=== PATIENT | male | born 1950 | race Two or more races ===

== ENCOUNTER 2021-10-10 11:54 | Inpatient (IN) | payer MEDICARE, MEDICAID ==
[~2021-10-10] VITALS: Ht 170.2 cm; Wt 81.0 kg
[~2021-10-10 11:54] MED LIST: ALLO300T2; SIMV-13
[2021-10-10 13:26] LABS: Basophils # (auto) 0.1 10 ^3/uL (0-0.2); Basophils % (auto) 1.1 % (0.0-2.0); Eosinophils # (auto) 0.2 10 ^3/uL (0-0.8); Eosinophils % (auto) 2.4 % (0.0-7.0); Hematocrit 44.9 % (41.0-53.0); Hemoglobin 15.1 g/dL (13.5-17.5); Lymphocytes # (auto) 2.5 10 ^3/uL (0.4-5.4); Lymphocytes % (auto) 31.9 % (10.0-50.0); Mean Corpuscular Hemoglobin 30.1 pg (28.0-32.0); Mean Corpuscular Hgb Conc. 33.6 g/dL (32.0-36.0); Mean Corpuscular Volume 89.8 fL (80.0-100.0); Monocytes # (auto) 0.5 10 ^3/uL (0-1.3); Monocytes % (auto) 7.1 % (0.0-12.0); Neutrophils # (auto) 4.4 10 ^3/uL (1.6-8.6); Neutrophils % (auto) 57.5 % (37.0-80.0); Nucleated Red Blood Cells % 0.1 %; Red Blood Cells 5.01 10^6/uL (4.5-5.90); White Blood Cell 7.7 10^3/uL (4.4-10.8)
[2021-10-10 13:40] LABS: INR 1.1 (0.9-1.15)
[2021-10-10] MEDS ORDERED: NITROGLYCERIN 0.4 MG SL TAB SL PRN (13:45)
[2021-10-10] MEDS ORDERED: MORPHINE SULFATE INJECTION 2 MG/ML SYRG IV PRN ×2 (13:45→15:45)
[2021-10-10 13:46] LABS: Albumin 3.8 g/dL (3.4-5.0); Calcium 9.2 mg/dL (8.5-10.1); Magnesium 2.5 mg/dL (1.6-2.6); Potassium 4.1 mmol/L (3.5-5.1)
[2021-10-10 13:49] LABS: Bilirubin, Total 0.5 mg/dL (0.2-1.0); Total Protein 7.7 g/dL (6.4-8.2)
[2021-10-10] MEDS ORDERED: hydrALAZINE HCL 20 MG/ML VL IV PRN (14:00)
[2021-10-10 14:27] LABS: Urine Amorphous Crystal MOD /hpf (None Seen); Urine Bacteria MANY /hpf (None Seen); Urine Blood Negative /uL (Negative); Urine Budding Yeast LOADED /hpf (None Seen); Urine Mucus FEW (None Seen); Urine Specific Gravity 1.023 (1.001-1.035); Urine WBC 6 /hpf (0 - 3)
[2021-10-10] MEDS ORDERED: ONDANSETRON HCL 4 MG/2 ML VIAL IV PRN (15:45)
[2021-10-10] MEDS ORDERED: HYDROcodone-ACET 5/325MG TAB PO PRN (15:45)
[2021-10-10] MEDS ORDERED: LORazepam 0.5 MG TAB PO PRN (15:45)
[2021-10-10] MEDS ORDERED: ACETAMINOPHEN 325 MG TAB PO PRN (15:45)
[2021-10-10] MEDS ORDERED: DOCUSATE SOD 100 MG CAP PO PRN (15:45)
[2021-10-10] MEDS: SODIUM CHLORIDE 0.9% 1,000 ML IV SCH (16:00)
[2021-10-10 16:45] VITALS: BP 126/67
[2021-10-10 17:40] VITALS: BP 126/67
[2021-10-10] MEDS: TAMSULOSIN HYDROCHLORIDE 0.4 MG CAP PO SCH (18:53)
[2021-10-10] MEDS: ATORVASTATIN 20 MG TAB PO SCH (21:33)
[2021-10-10 22:00] VITALS: BP 139/75
[2021-10-10] MEDS ORDERED: TELM80TA PO (23:22)
[2021-10-10] MEDS ORDERED: ATOR-47 PO (23:22)
[2021-10-10] MEDS ORDERED: CITI500C PO (23:22)
[2021-10-11 05:00] VITALS: BP 119/57
[2021-10-11 06:32] LABS: Basophils # (auto) 0 10 ^3/uL (0-0.2); Basophils % (auto) 0.7 % (0.0-2.0); Eosinophils # (auto) 0.2 10 ^3/uL (0-0.8); Eosinophils % (auto) 2.7 % (0.0-7.0); Hematocrit 41.5 % (41.0-53.0); Hemoglobin 14.1 g/dL (13.5-17.5); Lymphocytes # (auto) 2.5 10 ^3/uL (0.4-5.4); Lymphocytes % (auto) 35.2 % (10.0-50.0); Mean Corpuscular Hemoglobin 30.3 pg (28.0-32.0); Mean Corpuscular Hgb Conc. 34.1 g/dL (32.0-36.0); Mean Corpuscular Volume 88.9 fL (80.0-100.0); Monocytes # (auto) 0.4 10 ^3/uL (0-1.3); Monocytes % (auto) 6.2 % (0.0-12.0); Neutrophils # (auto) 3.9 10 ^3/uL (1.6-8.6); Neutrophils % (auto) 55.2 % (37.0-80.0); Nucleated Red Blood Cells % 0.1 %; Red Blood Cells 4.67 10^6/uL (4.5-5.90); Red Cell Distribution Width 14.8 % (11.8-14.3); White Blood Cell 7.2 10^3/uL (4.4-10.8)
[2021-10-11 06:42] LABS: INR 1.11 (0.9-1.15)
[2021-10-11 06:51] LABS: Potassium 4.1 mmol/L (3.5-5.1)
[2021-10-11 07:01] LABS: Albumin 3.4 g/dL (3.4-5.0); BUN/Creatinine Ratio 11.7; Bilirubin, Total 0.5 mg/dL (0.2-1.0); Calcium 8.9 mg/dL (8.5-10.1); Magnesium 2.1 mg/dL (1.6-2.6); Total Protein 7.1 g/dL (6.4-8.2); Uric Acid 4.1 mg/dL (3.5-7.2)
[2021-10-11 07:07] LABS: Urine Bacteria NONE SEEN /hpf (None Seen); Urine Blood Negative /uL (Negative); Urine Specific Gravity 1.019 (1.001-1.035); Urine WBC <1 /hpf (0 - 3)
[2021-10-11 09:00] VITALS: BP 138/60
[2021-10-11 09:10] LABS: Alcohol, Urine < 3.0 mg/dL (0-10); Amphetamine Screen, Urine NEGATIVE (NEGATIVE); Barbiturate Scree,Urine NEGATIVE (NEGATIVE); Benzodiazephine Screen, Urine NEGATIVE (NEGATIVE); Cannabinoid Screen, Urine NEGATIVE (NEGATIVE); Cocaine Screen, Urine NEGATIVE (NEGATIVE); Opiate Scree,Urine NEGATIVE (NEGATIVE); Phencyclidine Screen, Urine NEGATIVE (NEGATIVE)
[2021-10-11] MEDS: ALLOPURINOL 100 MG TAB PO SCH (09:56)
[2021-10-11] MEDS: NIFEdipine ER 30 MG TAB PO SCH (09:58)
[2021-10-11] MEDS: CLOPIDOGREL BISULFATE 75 MG TAB PO SCH (09:58)
[2021-10-11] MEDS: ENOXAPARIN SOD 40 MG/0.4 ML SYRINGE SC SCH (09:59)
[2021-10-11] MEDS: SODIUM CHLORIDE 0.9% 1,000 ML IV SCH (09:59)
[2021-10-11] MEDS: BENAZEPRIL HCL 10 MG TAB PO SCH (09:59)
[2021-10-11] MEDS ORDERED: FAMOTIDINE (10MG/ML) 2ML VL IV SCH (10:00)
[2021-10-11 13:00] VITALS: BP 130/79
[2021-10-11 16:49] VITALS: BP 133/71
[2021-10-11] MEDS: TAMSULOSIN HYDROCHLORIDE 0.4 MG CAP PO SCH (18:00)
[2021-10-11] MEDS ORDERED: IOHEXOL 350 MG/ML 100ML IJ ONE (18:11)
[2021-10-11] MEDS: ATORVASTATIN 20 MG TAB PO SCH (21:33)
[2021-10-11 22:36] VITALS: BP 124/75
[2021-10-12 05:09] VITALS: BP 139/73
[2021-10-12 09:00] VITALS: BP 124/61
[2021-10-12] MEDS: ASPirin 81 mg TAB PO SCH (09:24)
[2021-10-12] MEDS: NIFEdipine ER 30 MG TAB PO SCH (09:26)
[2021-10-12] MEDS: ENOXAPARIN SOD 40 MG/0.4 ML SYRINGE SC SCH (09:26)
[2021-10-12] MEDS: BENAZEPRIL HCL 10 MG TAB PO SCH (09:26)
[2021-10-12] MEDS: CLOPIDOGREL BISULFATE 75 MG TAB PO SCH (09:26)
[2021-10-12] MEDS: ALLOPURINOL 100 MG TAB PO SCH (09:26)
[2021-10-12 13:00] VITALS: BP 128/94
[2021-10-12 17:00] VITALS: BP 119/67
[2021-10-12] MEDS: TAMSULOSIN HYDROCHLORIDE 0.4 MG CAP PO SCH (17:37)
[2021-10-12 22:00] VITALS: BP 114/67
[2021-10-12] MEDS ORDERED: ATORVASTATIN 20 MG TAB PO SCH (22:00)
[2021-10-13 05:00] VITALS: BP 101/65
[2021-10-13 08:00] VITALS: BP 126/76
[2021-10-13] MEDS: ALLOPURINOL 100 MG TAB PO SCH (09:51)
[2021-10-13] MEDS: ASPirin 81 mg TAB PO SCH (09:51)
[2021-10-13] MEDS: CLOPIDOGREL BISULFATE 75 MG TAB PO SCH (09:51)
[2021-10-13] MEDS: NIFEdipine ER 30 MG TAB PO SCH (09:52)
[2021-10-13] MEDS: BENAZEPRIL HCL 10 MG TAB PO SCH (09:52)
[2021-10-13] MEDS: ENOXAPARIN SOD 40 MG/0.4 ML SYRINGE SC SCH (09:54)
[2021-10-13] MEDS ORDERED: ASPI1CHW15 PO (10:04)
[2021-10-13] MEDS ORDERED: CLOP75TA70 PO (10:04)
[2021-10-13] MEDS ORDERED: ATOR-47 PO (10:04)
[2021-10-13 12:00] VITALS: BP 119/68
[2021-10-13 13:55] VITALS: BP 126/76
== END 2021-10-13 14:30 | disposition home health service (06) | DRG 65 ==
LOC: ER 11:54 → TELE 13:33 → TELE-CENTR 17:30
PROVIDERS: ADMIT Hospitalist; ATTEND Internal Medicine
DX: I63.81 Other cerebral infarction due to occlusion or stenosis of small artery (principal); G81.91 Hemiplegia, unspecified affecting right dominant side; E88.81 Metabolic syndrome and other insulin resistance; E78.5 Hyperlipidemia, unspecified; E66.01 Morbid (severe) obesity due to excess calories; K76.0 Fatty (change of) liver, not elsewhere classified; M1A.9XX0 Chronic gout, unspecified, without tophus (tophi); Z20.822 Contact with and (suspected) exposure to COVID-19; G47.10 Hypersomnia, unspecified; F17.200 Nicotine dependence, unspecified, uncomplicated; I10 Essential (primary) hypertension; Z79.02 Long term (current) use of antithrombotics/antiplatelets; Z79.82 Long term (current) use of aspirin; Z79.899 Other long term (current) drug therapy; Z68.28 Body mass index [BMI] 28.0-28.9, adult
CPT/HCPCS: 36415; 70450; 70496; 70498; 71045; 80053; 80061; 80307; 81001; 82306; 82728; 83036; 83615; 83690; 83735; 83880; 84443; 84484; 84550; 85025; 85379; 85610; 85652; 85730; 87040; 87086; 93005; 93306; 93886; 97163; G0378; J3490

== ENCOUNTER → 2021-10-26 | Outpatient (CLI) | payer MEDICARE, MEDICAID ==
[~2021-10-26] MED LIST changes: -ALLO300T2; +ASPI1CHW15 PO; +ATOR-47 PO; +CLOP75TA70 PO; -SIMV-13; +TELM80TA PO
== END | disposition home or self-care (01) ==
LOC: LAB 10:43
PROVIDERS: ATTEND Internal Medicine
DX: Z12.31 Encounter for screening mammogram for malignant neoplasm of breast (principal)
CPT/HCPCS: 82274

== ENCOUNTER → 2022-03-13 | Outpatient (CLI) | payer MEDICARE, MEDICAID ==
[2022-03-13 09:26] LABS: Urine Blood Negative /uL (Negative); Urine Specific Gravity 1.019 (1.001-1.035)
[2022-03-13 09:27] LABS: Urine Bacteria NONE SEEN /hpf (None Seen); Urine Blood Negative /uL (Negative); Urine Mucus FEW (None Seen); Urine Specific Gravity 1.019 (1.001-1.035); Urine WBC <1 /hpf (0 - 3)
[2022-03-13 09:30] LABS: Basophils # (auto) 0.1 10 ^3/uL (0-0.2); Basophils % (auto) 0.7 % (0.0-2.0); Eosinophils # (auto) 0.3 10 ^3/uL (0-0.8); Eosinophils % (auto) 3.4 % (0.0-7.0); Hematocrit 44.9 % (41.0-53.0); Hemoglobin 14.9 g/dL (13.5-17.5); Lymphocytes # (auto) 3.2 10 ^3/uL (0.4-5.4); Lymphocytes % (auto) 44.1 % (10.0-50.0); Mean Corpuscular Hemoglobin 29.7 pg (28.0-32.0); Mean Corpuscular Hgb Conc. 33.3 g/dL (32.0-36.0); Mean Corpuscular Volume 89.4 fL (80.0-100.0); Monocytes # (auto) 0.5 10 ^3/uL (0-1.3); Monocytes % (auto) 6.6 % (0.0-12.0); Neutrophils # (auto) 3.3 10 ^3/uL (1.6-8.6); Neutrophils % (auto) 45.2 % (37.0-80.0); Red Blood Cells 5.02 10^6/uL (4.5-5.90); Red Cell Distribution Width 15.2 % (11.8-14.3); White Blood Cell 7.3 10^3/uL (4.4-10.8)
[2022-03-13 10:03] LABS: Albumin 3.7 g/dL (3.4-5.0); Calcium 8.9 mg/dL (8.5-10.1)
[2022-03-13 10:10] LABS: Bilirubin, Total 0.9 mg/dL (0.2-1.0); Total Protein 7.3 g/dL (6.4-8.2)
[2022-03-13 10:54] LABS: Prostate Specific Antigen 1.58 ng/mL (0.0-4.0)
== END | disposition home or self-care (01) ==
LOC: LAB 08:50
PROVIDERS: ATTEND Internal Medicine
DX: R73.09 Other abnormal glucose (principal); E78.5 Hyperlipidemia, unspecified; R33.9 Retention of urine, unspecified; D50.9 Iron deficiency anemia, unspecified
CPT/HCPCS: 36415; 80053; 80061; 81001; 81003; 82607; 83540; 84153; 85025

== ENCOUNTER 2022-03-21 14:28 | Inpatient (IN) | payer MEDICARE, MEDICAID ==
[~2022-03-21] VITALS: Ht 167.6 cm; Wt 83.0 kg
[2022-03-21] MEDS ORDERED: LORazepam 0.5 MG TAB PO PRN (17:00)
[2022-03-21] MEDS ORDERED: MORPHINE SULFATE INJ 2 MG/ml SYRG IV PRN ×2 (17:00)
[2022-03-21] MEDS ORDERED: ACETAMINOPHEN 325 MG TAB PO PRN (17:00)
[2022-03-21] MEDS ORDERED: HYDROcodone-ACET 5/325MG TAB PO PRN (17:00)
[2022-03-21] MEDS ORDERED: NITROGLYCERIN 0.4 MG SL TAB SL PRN (17:00)
[2022-03-21] MEDS ORDERED: ONDANSETRON HCL 4 MG/2 ML VIAL IV PRN (17:00)
[2022-03-21] MEDS ORDERED: ASPirin 81 mg TAB PO ONE (17:00)
[2022-03-21] MEDS ORDERED: DOCUSATE SOD 100 MG CAP PO PRN (17:00)
[2022-03-21 17:52] LABS: Basophils # (auto) 0.1 10 ^3/uL (0-0.2); Basophils % (auto) 0.8 % (0.0-2.0); Eosinophils # (auto) 0.2 10 ^3/uL (0-0.8); Eosinophils % (auto) 3.2 % (0.0-7.0); Hematocrit 40.9 % (41.0-53.0); Hemoglobin 13.4 g/dL (13.5-17.5); Lymphocytes % (auto) 41.7 % (10.0-50.0); Mean Corpuscular Hemoglobin 29.4 pg (28.0-32.0); Mean Corpuscular Hgb Conc. 32.7 g/dL (32.0-36.0); Mean Corpuscular Volume 90.1 fL (80.0-100.0); Monocytes # (auto) 0.5 10 ^3/uL (0-1.3); Monocytes % (auto) 6.5 % (0.0-12.0); Neutrophils # (auto) 3.4 10 ^3/uL (1.6-8.6); Neutrophils % (auto) 47.8 % (37.0-80.0); Red Blood Cells 4.54 10^6/uL (4.5-5.90); Red Cell Distribution Width 15.3 % (11.8-14.3); White Blood Cell 7.2 10^3/uL (4.4-10.8)
[2022-03-21 17:57] LABS: INR 1.05 (0.9-1.15)
[2022-03-21 18:01] LABS: Calcium 8.7 mg/dL (8.5-10.1); Magnesium 2.4 mg/dL (1.6-2.6); Potassium 4.3 mmol/L (3.5-5.1)
[2022-03-21 18:03] LABS: BUN/Creatinine Ratio 12.4
[2022-03-21] MEDS: SODIUM CHLOR 0.9% PF (SALINE LOCK) 10ML VIAL/SYR IV SCH (21:07)
[2022-03-21] MEDS: ATORVASTATIN 20 MG TAB PO SCH (21:08)
[2022-03-21 21:30] VITALS: BP 128/71
[2022-03-22 05:00] VITALS: BP 143/77
[2022-03-22] MEDS: SODIUM CHLOR 0.9% PF (SALINE LOCK) 10ML VIAL/SYR IV SCH ×3 (05:09→21:28)
[2022-03-22 07:03] LABS: Urine Bacteria NONE SEEN /hpf (None Seen); Urine Blood Negative /uL (Negative); Urine Mucus FEW (None Seen); Urine Specific Gravity 1.013 (1.001-1.035); Urine WBC <1 /hpf (0 - 3)
[2022-03-22] MEDS ORDERED: ADENOSINE 71 MG in GIVE UN-DILUTED 0 ML IV ONE (07:30)
[2022-03-22 07:31] LABS: Alcohol, Urine < 3.0 mg/dL (0-10); Amphetamine Screen, Urine NEGATIVE (NEGATIVE); Barbiturate Scree,Urine NEGATIVE (NEGATIVE); Benzodiazephine Screen, Urine NEGATIVE (NEGATIVE); Cannabinoid Screen, Urine NEGATIVE (NEGATIVE); Cocaine Screen, Urine NEGATIVE (NEGATIVE); Opiate Scree,Urine NEGATIVE (NEGATIVE); Phencyclidine Screen, Urine NEGATIVE (NEGATIVE)
[2022-03-22 08:30] VITALS: BP 143/94
[2022-03-22] MEDS ORDERED: LOSARTAN POTASSIUM 50 MG TAB PO ONE (11:30)
[2022-03-22] MEDS ORDERED: hydrALAZINE HCL 20 MG/ML VL IV PRN (11:30)
[2022-03-22] MEDS: ASPirin 81 mg TAB PO SCH (11:50)
[2022-03-22 13:00] VITALS: BP 167/88
[2022-03-22 17:08] VITALS: BP 153/87
[2022-03-22] MEDS: ATORVASTATIN 20 MG TAB PO SCH (21:28)
[2022-03-22 22:00] VITALS: BP 134/87
[2022-03-23 05:00] VITALS: BP 120/60
[2022-03-23] MEDS: SODIUM CHLOR 0.9% PF (SALINE LOCK) 10ML VIAL/SYR IV SCH ×3 (06:21→21:13)
[2022-03-23 09:00] VITALS: BP 111/60
[2022-03-23] MEDS: LOSARTAN POTASSIUM 50 MG TAB PO SCH (09:19)
[2022-03-23] MEDS: ASPirin 81 mg TAB PO SCH (09:19)
[2022-03-23 12:32] VITALS: BP 126/60
[2022-03-23 17:14] VITALS: BP 135/74
[2022-03-23] MEDS: ATORVASTATIN 20 MG TAB PO SCH (21:13)
[2022-03-23 22:00] VITALS: BP 137/69
[2022-03-24 05:00] VITALS: BP 128/57
[2022-03-24] MEDS: SODIUM CHLOR 0.9% PF (SALINE LOCK) 10ML VIAL/SYR IV SCH (05:46)
[2022-03-24 08:51] VITALS: BP 129/86
[2022-03-24] MEDS: LOSARTAN POTASSIUM 50 MG TAB PO SCH (09:49)
[2022-03-24] MEDS: ASPirin 81 mg TAB PO SCH (09:49)
[2022-03-24 13:00] VITALS: BP 125/73
[2022-03-24 14:48] VITALS: BP 123/77
[2022-03-24 15:02] VITALS: BP 123/77
== END 2022-03-24 16:00 | disposition home or self-care (01) | DRG 311 ==
LOC: TELE-EAST 16:50
PROVIDERS: ADMIT Internal Medicine; ATTEND Internal Medicine
DX: I24.9 Acute ischemic heart disease, unspecified (principal); E78.5 Hyperlipidemia, unspecified; E66.9 Obesity, unspecified; I10 Essential (primary) hypertension; Z20.822 Contact with and (suspected) exposure to COVID-19; M10.9 Gout, unspecified; R73.03 Prediabetes; Z87.891 Personal history of nicotine dependence; Z86.73 Personal history of transient ischemic attack (TIA), and cerebral infarction without residual deficits; Z71.3 Dietary counseling and surveillance; Z68.29 Body mass index [BMI] 29.0-29.9, adult
CPT/HCPCS: 36415; 71045; 78452; 80048; 80307; 81001; 83036; 83735; 83880; 84443; 84484; 85025; 85610; 85730; 87426; 93017; 93306; G0378; J0153

== ENCOUNTER 2022-06-12 00:13 | Inpatient (IN) | payer MEDICARE, MEDICAID ==
[~2022-06-12] VITALS: Ht 167.6 cm; Wt 84.0 kg
[2022-06-12 00:45] LABS: Basophils # (auto) 0.1 10 ^3/uL (0-0.2); Basophils % (auto) 0.6 % (0.0-2.0); Eosinophils # (auto) 0.1 10 ^3/uL (0-0.8); Eosinophils % (auto) 1.4 % (0.0-7.0); Hematocrit 43.5 % (41.0-53.0); Hemoglobin 14.6 g/dL (13.5-17.5); Lymphocytes # (auto) 3.5 10 ^3/uL (0.4-5.4); Lymphocytes % (auto) 33.4 % (10.0-50.0); Mean Corpuscular Hemoglobin 30.6 pg (28.0-32.0); Mean Corpuscular Hgb Conc. 33.5 g/dL (32.0-36.0); Mean Corpuscular Volume 91.3 fL (80.0-100.0); Monocytes # (auto) 0.6 10 ^3/uL (0-1.3); Monocytes % (auto) 5.8 % (0.0-12.0); Neutrophils # (auto) 6.2 10 ^3/uL (1.6-8.6); Neutrophils % (auto) 58.8 % (37.0-80.0); Red Blood Cells 4.76 10^6/uL (4.5-5.90); White Blood Cell 10.6 10^3/uL (4.4-10.8)
[2022-06-12] MEDS ORDERED: ONDANSETRON HCL 4 MG/2 ML VIAL IV ONE ×2 (00:45→03:00)
[2022-06-12] MEDS ORDERED: METOCLOPRAMIDE HCL 5MG/ml INJ 2ml VIAL IV ONE (00:45)
[2022-06-12 00:52] LABS: INR 1.04 (0.9-1.15); Partial Thromboplastin Time 28.9 sec (24.6-33.4)
[2022-06-12 00:55] LABS: BUN/Creatinine Ratio 11.1; Calcium 9.2 mg/dL (8.5-10.1)
[2022-06-12 00:57] LABS: Bilirubin, Total 0.6 mg/dL (0.2-1.0); Total Protein 7.5 g/dL (6.4-8.2)
[2022-06-12] MEDS ORDERED: MORPHINE SULFATE 4 MG/ML SYR/VIAL IV ONE ×2 (02:15→03:00)
[2022-06-12] MEDS ORDERED: MORPHINE SULFATE 4 MG/ML SYR/VIAL IV PRN (04:00)
[2022-06-12] MEDS ORDERED: MAALOX PLUS or MAALOX 30 ML PO ONE (04:00)
[2022-06-12] MEDS ORDERED: LORazepam 0.5 MG TAB PO PRN (04:00)
[2022-06-12] MEDS ORDERED: ACETAMINOPHEN 325 MG TAB PO PRN (04:00)
[2022-06-12] MEDS ORDERED: NITROGLYCERIN 0.4 MG SL TAB SL PRN (04:00)
[2022-06-12] MEDS: ONDANSETRON HCL 4 MG/2 ML VIAL IV PRN (06:07)
[2022-06-12 06:45] LABS: Basophils # (auto) 0.1 10 ^3/uL (0-0.2); Basophils % (auto) 0.7 % (0.0-2.0); Eosinophils # (auto) 0 10 ^3/uL (0-0.8); Eosinophils % (auto) 0.1 % (0.0-7.0); Hematocrit 41.7 % (41.0-53.0); Hemoglobin 14.1 g/dL (13.5-17.5); Lymphocytes # (auto) 1.5 10 ^3/uL (0.4-5.4); Lymphocytes % (auto) 13.7 % (10.0-50.0); Mean Corpuscular Hemoglobin 30.7 pg (28.0-32.0); Mean Corpuscular Hgb Conc. 33.8 g/dL (32.0-36.0); Mean Corpuscular Volume 90.7 fL (80.0-100.0); Monocytes # (auto) 0.5 10 ^3/uL (0-1.3); Monocytes % (auto) 4.3 % (0.0-12.0); Neutrophils % (auto) 81.2 % (37.0-80.0); Nucleated Red Blood Cells % 0.1 %; White Blood Cell 11.1 10^3/uL (4.4-10.8)
[2022-06-12 06:52] LABS: BUN/Creatinine Ratio 11.1; Calcium 9.1 mg/dL (8.5-10.1); Potassium 4.2 mmol/L (3.5-5.1)
[2022-06-12] MEDS ORDERED: IPRATROPIUM BROM 0.5 MG/2.5ML INH SOL NEB PRN ×2 (08:00→09:15)
[2022-06-12] MEDS ORDERED: ALBUTEROL SULF 2.5 MG/0.5ML(0.5%) NEB SOLN NEB PRN ×2 (08:00→09:15)
[2022-06-12] MEDS ORDERED: MAALOX PLUS or MAALOX 30 ML PO PRN (09:15)
[2022-06-12 09:48] VITALS: BP 125/56
[2022-06-12] MEDS ORDERED: LISINOPRIL 10 MG TAB PO SCH (10:00)
[2022-06-12] MEDS ORDERED: ENOXAPARIN SOD 100 MG/1 ML SYRINGE SC SCH (10:00)
[2022-06-12] MEDS ORDERED: LISINOPRIL 5 MG TAB PO SCH ×2 (10:00)
[2022-06-12] MEDS: cefTRIAXone 1GM/50ML D5W 50 ML IV SCH (10:07)
[2022-06-12] MEDS: DOCUSATE SOD 100 MG CAP PO SCH (10:14)
[2022-06-12] MEDS: ASPirin 81 mg TAB PO SCH (10:14)
[2022-06-12] MEDS: METOPROLOL TARTRATE 25 MG TAB PO SCH ×2 (10:17→21:55)
[2022-06-12] MEDS: CLOPIDOGREL BISULFATE 75 MG TAB PO SCH (10:17)
[2022-06-12] MEDS: PANTOPRAZOLE 40 MG TAB PO SCH (10:18)
[2022-06-12] MEDS: AZITHROMYCIN 250 MG TAB PO SCH (10:21)
[2022-06-12 10:31] LABS: Urine Bacteria NONE SEEN /hpf (None Seen); Urine Blood Negative /uL (Negative); Urine WBC 9 /hpf (0 - 3); Urine WBC Clumps PRESENT /hpf (None Seen)
[2022-06-12] MEDS: ATORVASTATIN 20 MG TAB PO SCH (21:56)
[2022-06-13] MEDS ORDERED: KETOROLAC TROMETH 30 MG/ML 1ML VIAL IV PRN (08:45)
[2022-06-13] MEDS ORDERED: KETOROLAC TROMETH 30 MG/ML 1ML VIAL IV ONE (08:45)
[2022-06-13] MEDS: cefTRIAXone 1GM/50ML D5W 50 ML IV SCH (09:26)
[2022-06-13] MEDS: AZITHROMYCIN 250 MG TAB PO SCH (09:59)
[2022-06-13] MEDS: ASPirin 81 mg TAB PO SCH (09:59)
[2022-06-13] MEDS: PANTOPRAZOLE 40 MG TAB PO SCH (10:00)
[2022-06-13] MEDS: DOCUSATE SOD 100 MG CAP PO SCH (10:00)
[2022-06-13] MEDS: ISOSORBIDE MONONITRATE ER 60 MG TAB PO SCH (10:00)
[2022-06-13] MEDS: METOPROLOL TARTRATE 25 MG TAB PO SCH ×2 (10:00→23:09)
[2022-06-13] MEDS: CLOPIDOGREL BISULFATE 75 MG TAB PO SCH (10:00)
[2022-06-13] MEDS ORDERED: OMNIPAQUE ORAL SOLN 500ml 12mg/ml PO ONE (19:02)
[2022-06-13] MEDS ORDERED: IOHEXOL 350 MG/ML 100ML IJ ONE (21:28)
[2022-06-13 22:00] VITALS: BP 124/76
[2022-06-13] MEDS: ATORVASTATIN 20 MG TAB PO SCH (23:07)
[2022-06-13 23:11] VITALS: BP 124/76
[2022-06-13] MEDS ORDERED: SODIUM CHLORIDE 0.9% 1,000 ML IV ONE (23:30)
[2022-06-14] MEDS: PIPERACILLIN-TAZOB 3.375GM 100 ML IV SCH ×5 (00:14→23:55)
[2022-06-14 05:00] VITALS: BP 131/78
[2022-06-14 08:47] VITALS: BP 134/66
[2022-06-14 09:02] LABS: Basophils # (auto) 0.1 10 ^3/uL (0-0.2); Basophils % (auto) 0.5 % (0.0-2.0); Eosinophils # (auto) 0.1 10 ^3/uL (0-0.8); Eosinophils % (auto) 0.5 % (0.0-7.0); Hematocrit 40.6 % (41.0-53.0); Hemoglobin 13.3 g/dL (13.5-17.5); Lymphocytes # (auto) 1.7 10 ^3/uL (0.4-5.4); Lymphocytes % (auto) 15.2 % (10.0-50.0); Mean Corpuscular Hemoglobin 29.8 pg (28.0-32.0); Mean Corpuscular Hgb Conc. 32.9 g/dL (32.0-36.0); Mean Corpuscular Volume 90.7 fL (80.0-100.0); Monocytes % (auto) 8.8 % (0.0-12.0); Neutrophils # (auto) 8.4 10 ^3/uL (1.6-8.6); Red Blood Cells 4.48 10^6/uL (4.5-5.90); Red Cell Distribution Width 15.2 % (11.8-14.3); White Blood Cell 11.2 10^3/uL (4.4-10.8)
[2022-06-14 09:20] LABS: Albumin 3.4 g/dL (3.4-5.0); Calcium 8.4 mg/dL (8.5-10.1); Magnesium 2.3 mg/dL (1.6-2.6); Potassium 4.1 mmol/L (3.5-5.1)
[2022-06-14 09:25] LABS: BUN/Creatinine Ratio 20.5; Bilirubin, Total 1.3 mg/dL (0.2-1.0); Total Protein 6.4 g/dL (6.4-8.2)
[2022-06-14] MEDS: DOCUSATE SOD 100 MG CAP PO SCH (10:00)
[2022-06-14] MEDS: AZITHROMYCIN 250 MG TAB PO SCH (10:00)
[2022-06-14] MEDS: METOPROLOL TARTRATE 25 MG TAB PO SCH ×2 (10:00→22:00)
[2022-06-14] MEDS: ISOSORBIDE MONONITRATE ER 60 MG TAB PO SCH (10:00)
[2022-06-14] MEDS: PANTOPRAZOLE 40 MG TAB PO SCH (10:00)
[2022-06-14] MEDS ORDERED: ALBUTEROL MEDNEB 2.5 mg/3ml NEB ONE (11:59)
[2022-06-14] MEDS ORDERED: MORPHINE SULFATE INJ 2 MG/ml SYRG IV PRN (12:30)
[2022-06-14] MEDS: ONDANSETRON HCL 4 MG/2 ML VIAL IV PRN ×3 (12:35→17:59)
[2022-06-14] MEDS ORDERED: LOSA-39 PO (12:48)
[2022-06-14] MEDS ORDERED: TRAZ50TA2 PO (12:49)
[2022-06-14] MEDS ORDERED: ALLO300T2 PO (12:49)
[2022-06-14] MEDS ORDERED: ISOS1TAB28 PO (12:49)
[2022-06-14 13:00] VITALS: BP 154/90
[2022-06-14] MEDS: MORPHINE SULFATE INJ 2 MG/ml SYRG IV PRN ×2 (17:00→17:59)
[2022-06-14 17:08] VITALS: BP 135/81
[2022-06-14] MEDS ORDERED: LACTULOSE 20Gm/30ML SOLN PO ONE (18:30)
[2022-06-14] MEDS: D5W/SOD CHLO 0.9% 1,000 ML IV SCH (21:00)
[2022-06-14 22:00] VITALS: BP 140/69
[2022-06-14] MEDS: ATORVASTATIN 20 MG TAB PO SCH (22:00)
[2022-06-15 05:00] VITALS: BP 138/71
[2022-06-15] MEDS: PIPERACILLIN-TAZOB 3.375GM 100 ML IV SCH ×3 (05:46→18:13)
[2022-06-15] MEDS: MORPHINE SULFATE INJ 2 MG/ml SYRG IV PRN ×2 (05:47→13:40)
[2022-06-15] MEDS: ONDANSETRON HCL 4 MG/2 ML VIAL IV PRN (05:48)
[2022-06-15 09:00] VITALS: BP 118/61
[2022-06-15] MEDS: AZITHROMYCIN 250 MG TAB PO SCH (10:52)
[2022-06-15] MEDS: DOCUSATE SOD 100 MG CAP PO SCH (10:53)
[2022-06-15] MEDS: PANTOPRAZOLE 40 MG TAB PO SCH (10:53)
[2022-06-15] MEDS: METOPROLOL TARTRATE 25 MG TAB PO SCH ×2 (10:53→21:59)
[2022-06-15] MEDS: ISOSORBIDE MONONITRATE ER 60 MG TAB PO SCH (10:54)
[2022-06-15] MEDS: D5W/SOD CHLO 0.9% 1,000 ML IV SCH (12:28)
[2022-06-15 13:00] VITALS: BP 128/71
[2022-06-15 16:45] VITALS: BP 145/71
[2022-06-15 19:00] VITALS: BP 143/66
[2022-06-15] MEDS: ATORVASTATIN 20 MG TAB PO SCH (21:59)
[2022-06-15 22:05] VITALS: BP 143/66
[2022-06-16] MEDS: PIPERACILLIN-TAZOB 3.375GM 100 ML IV SCH ×5 (00:34→23:49)
[2022-06-16 05:00] VITALS: BP 98/51
[2022-06-16 09:04] VITALS: BP 133/71
[2022-06-16] MEDS: ISOSORBIDE MONONITRATE ER 60 MG TAB PO SCH (09:45)
[2022-06-16] MEDS: PANTOPRAZOLE 40 MG TAB PO SCH (09:45)
[2022-06-16] MEDS: DOCUSATE SOD 100 MG CAP PO SCH (09:45)
[2022-06-16] MEDS: METOPROLOL TARTRATE 25 MG TAB PO SCH ×2 (09:45→21:53)
[2022-06-16] MEDS: AZITHROMYCIN 250 MG TAB PO SCH (09:45)
[2022-06-16 13:11] VITALS: BP 111/68
[2022-06-16 21:41] VITALS: BP 136/72
[2022-06-16] MEDS: ATORVASTATIN 20 MG TAB PO SCH (21:53)
[2022-06-16] MEDS: MORPHINE SULFATE INJ 2 MG/ml SYRG IV PRN (22:04)
[2022-06-17 05:00] VITALS: BP 139/74
[2022-06-17] MEDS: PIPERACILLIN-TAZOB 3.375GM 100 ML IV SCH ×3 (05:14→18:22)
[2022-06-17 09:00] VITALS: BP 139/75
[2022-06-17] MEDS: DOCUSATE SOD 100 MG CAP PO SCH (10:02)
[2022-06-17] MEDS: ISOSORBIDE MONONITRATE ER 60 MG TAB PO SCH (10:02)
[2022-06-17] MEDS: AZITHROMYCIN 250 MG TAB PO SCH (10:03)
[2022-06-17] MEDS: PANTOPRAZOLE 40 MG TAB PO SCH (10:03)
[2022-06-17] MEDS: METOPROLOL TARTRATE 25 MG TAB PO SCH ×2 (10:03→22:11)
[2022-06-17 13:00] VITALS: BP_SYST 139; BP_SYST 148; BP_DIAS 68; BP_DIAS 69
[2022-06-17 17:00] VITALS: BP 147/73
[2022-06-17] MEDS ORDERED: ALBUTEROL MEDNEB 2.5 mg/3ml NEB ONE (18:18)
[2022-06-17] MEDS: MORPHINE SULFATE INJ 2 MG/ml SYRG IV PRN (18:31)
[2022-06-17 21:52] VITALS: BP 138/70
[2022-06-17] MEDS: ATORVASTATIN 20 MG TAB PO SCH (22:10)
[2022-06-18] VITALS (8 sets, daily range): BP systolic 103–157; BP diastolic 58–81
[2022-06-18] MEDS: PIPERACILLIN-TAZOB 3.375GM 100 ML IV SCH ×5 (00:39→23:53)
[2022-06-18] MEDS: MORPHINE SULFATE INJ 2 MG/ml SYRG IV PRN ×2 (00:58→11:32)
[2022-06-18] MEDS: ISOSORBIDE MONONITRATE ER 60 MG TAB PO SCH (11:30)
[2022-06-18] MEDS: DOCUSATE SOD 100 MG CAP PO SCH (11:30)
[2022-06-18] MEDS: METOPROLOL TARTRATE 25 MG TAB PO SCH ×2 (11:31→22:19)
[2022-06-18] MEDS: AZITHROMYCIN 250 MG TAB PO SCH (11:31)
[2022-06-18] MEDS: PANTOPRAZOLE 40 MG TAB PO SCH (11:31)
[2022-06-18] MEDS: ATORVASTATIN 20 MG TAB PO SCH (22:18)
[2022-06-19 05:14] VITALS: BP 101/42
[2022-06-19] MEDS: PIPERACILLIN-TAZOB 3.375GM 100 ML IV SCH ×4 (05:46→18:36)
[2022-06-19 06:44] LABS: Urine Bacteria NONE SEEN /hpf (None Seen); Urine Blood Negative /uL (Negative); Urine Specific Gravity 1.017 (1.001-1.035); Urine WBC <1 /hpf (0 - 3)
[2022-06-19 07:16] LABS: Basophils # (auto) 0.1 10 ^3/uL (0-0.2); Basophils % (auto) 0.7 % (0.0-2.0); Eosinophils # (auto) 0.2 10 ^3/uL (0-0.8); Eosinophils % (auto) 2.8 % (0.0-7.0); Hematocrit 36.2 % (41.0-53.0); Lymphocytes # (auto) 2.3 10 ^3/uL (0.4-5.4); Lymphocytes % (auto) 31.2 % (10.0-50.0); Mean Corpuscular Hemoglobin 31.4 pg (28.0-32.0); Mean Corpuscular Hgb Conc. 35.9 g/dL (32.0-36.0); Mean Corpuscular Volume 87.6 fL (80.0-100.0); Monocytes # (auto) 0.7 10 ^3/uL (0-1.3); Monocytes % (auto) 9.6 % (0.0-12.0); Neutrophils # (auto) 4.2 10 ^3/uL (1.6-8.6); Neutrophils % (auto) 55.7 % (37.0-80.0); Red Blood Cells 4.13 10^6/uL (4.5-5.90); Red Cell Distribution Width 14.4 % (11.8-14.3); White Blood Cell 7.5 10^3/uL (4.4-10.8)
[2022-06-19 07:37] LABS: Potassium 3.7 mmol/L (3.5-5.1)
[2022-06-19 07:53] LABS: Albumin 2.8 g/dL (3.4-5.0); BUN/Creatinine Ratio 8.4; Bilirubin, Total 0.8 mg/dL (0.2-1.0); Calcium 8.8 mg/dL (8.5-10.1); Total Protein 7.2 g/dL (6.4-8.2)
[2022-06-19 07:59] LABS: INR 1.14 (0.9-1.15); Partial Thromboplastin Time 29.1 sec (24.6-33.4)
[2022-06-19 09:00] VITALS: BP 120/76
[2022-06-19] MEDS ORDERED: MIDAZOLAM HCL 2MG/2ML 2ml VIAL (1mg/ml) ONE (09:09)
[2022-06-19] MEDS ORDERED: fentaNYL CITRATE 100 MCG/2 ML VL ONE ×2 (09:09→09:29)
[2022-06-19] MEDS ORDERED: ROCURONIUM 10MG/ML 10ML VIAL IV ONE (09:14)
[2022-06-19] MEDS ORDERED: PROPOFOL 10 MG/ML 20 ML IV ONE (09:52)
[2022-06-19] MEDS ORDERED: LIDOCAINE 2% (LOCAL ANESTH.) PF 5ml SDV ONE (09:53)
[2022-06-19] MEDS ORDERED: ONDANSETRON HCL 4 MG/2 ML VIAL ONE (09:53)
[2022-06-19] MEDS ORDERED: HYDROmorphone HCL 2 MG/ML VL/or syr ONE (10:07)
[2022-06-19] MEDS: BUPIVACAINE HCL 0.25% P/F 10 ML VIAL ONE ×2 (10:30→10:45)
[2022-06-19] MEDS: LIDOCAINE W/ EPINEPHRINE 2% INJ 20ML VIAL ONE ×2 (10:30→10:45)
[2022-06-19] MEDS ORDERED: HYDROmorphone HCL 2 MG/ML VL/or syr IV PRN ×2 (10:45)
[2022-06-19] MEDS ORDERED: ONDANSETRON HCL 4 MG/2 ML VIAL IV PRN (10:45)
[2022-06-19] MEDS ORDERED: NEOSTIGMINE 1 MG/ML INJ (10mg/10ML VIAL) ONE (10:54)
[2022-06-19] MEDS ORDERED: GLYCOPYRROLATE 0.2 MG/ML 1ML VIAL ONE (10:54)
[2022-06-19] MEDS: ISOSORBIDE MONONITRATE ER 60 MG TAB PO SCH (12:45)
[2022-06-19] MEDS: DOCUSATE SOD 100 MG CAP PO SCH (12:45)
[2022-06-19] MEDS: METOPROLOL TARTRATE 25 MG TAB PO SCH ×2 (12:45→22:37)
[2022-06-19] MEDS: PANTOPRAZOLE 40 MG TAB PO SCH (12:45)
[2022-06-19 13:00] VITALS: BP 143/84
[2022-06-19] MEDS: MORPHINE SULFATE INJ 2 MG/ml SYRG IV PRN ×3 (14:22→22:38)
[2022-06-19 17:00] VITALS: BP 150/85
[2022-06-19 22:00] VITALS: BP 107/58
[2022-06-19] MEDS: ATORVASTATIN 20 MG TAB PO SCH (22:37)
[2022-06-20] MEDS: PIPERACILLIN-TAZOB 3.375GM 100 ML IV SCH ×4 (00:44→21:35)
[2022-06-20 05:00] VITALS: BP 111/67
[2022-06-20] MEDS: MORPHINE SULFATE INJ 2 MG/ml SYRG IV PRN ×2 (06:35→18:29)
[2022-06-20 07:54] LABS: Basophils # (auto) 0 10 ^3/uL (0-0.2); Basophils % (auto) 0.5 % (0.0-2.0); Eosinophils # (auto) 0.1 10 ^3/uL (0-0.8); Eosinophils % (auto) 0.6 % (0.0-7.0); Hematocrit 34.2 % (41.0-53.0); Hemoglobin 11.8 g/dL (13.5-17.5); Lymphocytes # (auto) 1.8 10 ^3/uL (0.4-5.4); Lymphocytes % (auto) 19.4 % (10.0-50.0); Mean Corpuscular Hemoglobin 30.7 pg (28.0-32.0); Mean Corpuscular Hgb Conc. 34.5 g/dL (32.0-36.0); Mean Corpuscular Volume 89.2 fL (80.0-100.0); Monocytes # (auto) 0.8 10 ^3/uL (0-1.3); Monocytes % (auto) 8.3 % (0.0-12.0); Neutrophils # (auto) 6.8 10 ^3/uL (1.6-8.6); Neutrophils % (auto) 71.2 % (37.0-80.0); Nucleated Red Blood Cells % 0.1 %; Red Blood Cells 3.84 10^6/uL (4.5-5.90); Red Cell Distribution Width 14.5 % (11.8-14.3); White Blood Cell 9.5 10^3/uL (4.4-10.8)
[2022-06-20 09:00] VITALS: BP 119/67
[2022-06-20] MEDS: DOCUSATE SOD 100 MG CAP PO SCH (09:30)
[2022-06-20] MEDS: ISOSORBIDE MONONITRATE ER 60 MG TAB PO SCH (09:30)
[2022-06-20] MEDS: METOPROLOL TARTRATE 25 MG TAB PO SCH ×2 (09:30→21:35)
[2022-06-20] MEDS: PANTOPRAZOLE 40 MG TAB PO SCH (09:30)
[2022-06-20 13:00] VITALS: BP 115/67
[2022-06-20 17:00] VITALS: BP 124/69
[2022-06-20] MEDS: HYDROcodone-ACET 5/325MG TAB PO PRN (20:23)
[2022-06-20] MEDS: ATORVASTATIN 20 MG TAB PO SCH (21:35)
[2022-06-20 22:00] VITALS: BP 123/70
[2022-06-21] MEDS: PIPERACILLIN-TAZOB 3.375GM 100 ML IV SCH ×4 (03:56→22:41)
[2022-06-21 05:00] VITALS: BP 129/67
[2022-06-21 07:32] LABS: Basophils # (auto) 0.1 10 ^3/uL (0-0.2); Basophils % (auto) 0.4 % (0.0-2.0); Eosinophils # (auto) 0.1 10 ^3/uL (0-0.8); Eosinophils % (auto) 1.1 % (0.0-7.0); Hemoglobin 11.8 g/dL (13.5-17.5); Lymphocytes # (auto) 2.1 10 ^3/uL (0.4-5.4); Lymphocytes % (auto) 18.2 % (10.0-50.0); Mean Corpuscular Hemoglobin 31.2 pg (28.0-32.0); Mean Corpuscular Hgb Conc. 34.8 g/dL (32.0-36.0); Mean Corpuscular Volume 89.6 fL (80.0-100.0); Monocytes # (auto) 0.7 10 ^3/uL (0-1.3); Monocytes % (auto) 6.2 % (0.0-12.0); Neutrophils # (auto) 8.6 10 ^3/uL (1.6-8.6); Neutrophils % (auto) 74.1 % (37.0-80.0); Red Blood Cells 3.79 10^6/uL (4.5-5.90); Red Cell Distribution Width 13.9 % (11.8-14.3); White Blood Cell 11.7 10^3/uL (4.4-10.8)
[2022-06-21 07:42] LABS: Albumin 2.5 g/dL (3.4-5.0)
[2022-06-21 07:51] LABS: BUN/Creatinine Ratio 7.5; Bilirubin, Total 0.9 mg/dL (0.2-1.0); Total Protein 6.3 g/dL (6.4-8.2)
[2022-06-21 08:50] VITALS: BP 123/74
[2022-06-21] MEDS: DOCUSATE SOD 100 MG CAP PO SCH (09:47)
[2022-06-21] MEDS: METOPROLOL TARTRATE 25 MG TAB PO SCH ×2 (09:48→22:40)
[2022-06-21] MEDS: PANTOPRAZOLE 40 MG TAB PO SCH (09:48)
[2022-06-21] MEDS: ISOSORBIDE MONONITRATE ER 60 MG TAB PO SCH (09:49)
[2022-06-21] MEDS: MORPHINE SULFATE INJ 2 MG/ml SYRG IV PRN (10:18)
[2022-06-21 13:00] VITALS: BP 130/76
[2022-06-21] MEDS ORDERED: FUROSEMIDE 20 MG/2 ML VIAL IV ONE (14:45)
[2022-06-21] MEDS: HYDROcodone-ACET 5/325MG TAB PO PRN ×2 (15:56→22:42)
[2022-06-21 17:02] VITALS: BP 147/77
[2022-06-21] MEDS ORDERED: ALBUTEROL MEDNEB 2.5 mg/3ml NEB ONE ×2 (18:19→23:45)
[2022-06-21] MEDS: ALBUTEROL SULF 2.5 MG/0.5ML(0.5%) NEB SOLN NEB SCH (19:11)
[2022-06-21] MEDS: IPRATROPIUM BROM 0.5 MG/2.5ML INH SOL NEB SCH (19:11)
[2022-06-21 22:00] VITALS: BP 153/90
[2022-06-21 22:40] VITALS: BP 153/90
[2022-06-21] MEDS: ATORVASTATIN 20 MG TAB PO SCH (22:41)
[2022-06-22] MEDS: ALBUTEROL SULF 2.5 MG/0.5ML(0.5%) NEB SOLN NEB SCH ×4 (00:29→18:26)
[2022-06-22] MEDS: IPRATROPIUM BROM 0.5 MG/2.5ML INH SOL NEB SCH ×4 (00:29→18:26)
[2022-06-22] MEDS: PIPERACILLIN-TAZOB 3.375GM 100 ML IV SCH ×3 (04:43→15:43)
[2022-06-22 05:00] VITALS: BP 137/70
[2022-06-22] MEDS ORDERED: ALBUTEROL MEDNEB 2.5 mg/3ml NEB ONE ×3 (05:58→18:05)
[2022-06-22 07:55] LABS: Basophils # (auto) 0.1 10 ^3/uL (0-0.2); Basophils % (auto) 0.5 % (0.0-2.0); Eosinophils # (auto) 0.1 10 ^3/uL (0-0.8); Eosinophils % (auto) 0.9 % (0.0-7.0); Hematocrit 35.4 % (41.0-53.0); Hemoglobin 11.5 g/dL (13.5-17.5); Lymphocytes # (auto) 2.1 10 ^3/uL (0.4-5.4); Lymphocytes % (auto) 15.8 % (10.0-50.0); Mean Corpuscular Hemoglobin 29.8 pg (28.0-32.0); Mean Corpuscular Hgb Conc. 32.5 g/dL (32.0-36.0); Mean Corpuscular Volume 91.5 fL (80.0-100.0); Monocytes % (auto) 7.4 % (0.0-12.0); Neutrophils # (auto) 10.1 10 ^3/uL (1.6-8.6); Neutrophils % (auto) 75.4 % (37.0-80.0); Red Blood Cells 3.87 10^6/uL (4.5-5.90); Red Cell Distribution Width 14.3 % (11.8-14.3); White Blood Cell 13.4 10^3/uL (4.4-10.8)
[2022-06-22 08:06] LABS: Albumin 2.4 g/dL (3.4-5.0); Calcium 7.8 mg/dL (8.5-10.1); Potassium 3.8 mmol/L (3.5-5.1)
[2022-06-22 08:09] LABS: BUN/Creatinine Ratio 6.3; Bilirubin, Total 1.7 mg/dL (0.2-1.0); Total Protein 5.9 g/dL (6.4-8.2)
[2022-06-22 09:00] VITALS: BP 158/71
[2022-06-22] MEDS: PANTOPRAZOLE 40 MG TAB PO SCH (10:11)
[2022-06-22] MEDS: DOCUSATE SOD 100 MG CAP PO SCH (10:11)
[2022-06-22] MEDS: ISOSORBIDE MONONITRATE ER 60 MG TAB PO SCH (10:12)
[2022-06-22] MEDS: METOPROLOL TARTRATE 25 MG TAB PO SCH ×2 (10:13→22:22)
[2022-06-22] MEDS: HYDROcodone-ACET 5/325MG TAB PO PRN (11:15)
[2022-06-22 13:10] VITALS: BP 141/80
[2022-06-22] MEDS ORDERED: FUROSEMIDE 20 MG/2 ML VIAL IV ONE (15:45)
[2022-06-22] MEDS ORDERED: AZITHROMYCIN 250 MG TAB PO ONE (15:45)
[2022-06-22 16:59] VITALS: BP 138/74
[2022-06-22 21:50] VITALS: BP 152/82
[2022-06-22] MEDS: ATORVASTATIN 20 MG TAB PO SCH (22:22)
[2022-06-22] MEDS: MORPHINE SULFATE INJ 2 MG/ml SYRG IV PRN (22:23)
[2022-06-23] MEDS: IPRATROPIUM BROM 0.5 MG/2.5ML INH SOL NEB SCH ×4 (02:35→19:17)
[2022-06-23] MEDS: ALBUTEROL SULF 2.5 MG/0.5ML(0.5%) NEB SOLN NEB SCH ×4 (02:35→19:17)
[2022-06-23] MEDS: PIPERACILLIN-TAZOB 3.375GM 100 ML IV SCH ×4 (03:16→22:29)
[2022-06-23 04:41] VITALS: BP 130/84
[2022-06-23] MEDS ORDERED: ALBUTEROL MEDNEB 2.5 mg/3ml NEB ONE ×3 (06:08→17:50)
[2022-06-23 08:06] LABS: Basophils # (auto) 0.1 10 ^3/uL (0-0.2); Basophils % (auto) 0.5 % (0.0-2.0); Eosinophils # (auto) 0.1 10 ^3/uL (0-0.8); Eosinophils % (auto) 0.5 % (0.0-7.0); Hematocrit 35.1 % (41.0-53.0); Lymphocytes # (auto) 1.7 10 ^3/uL (0.4-5.4); Lymphocytes % (auto) 12.8 % (10.0-50.0); Mean Corpuscular Hemoglobin 30.3 pg (28.0-32.0); Mean Corpuscular Hgb Conc. 34.1 g/dL (32.0-36.0); Monocytes % (auto) 7.8 % (0.0-12.0); Neutrophils # (auto) 10.4 10 ^3/uL (1.6-8.6); Neutrophils % (auto) 78.4 % (37.0-80.0); Nucleated Red Blood Cells % 0.1 %; Red Blood Cells 3.95 10^6/uL (4.5-5.90); Red Cell Distribution Width 14.2 % (11.8-14.3); White Blood Cell 13.3 10^3/uL (4.4-10.8)
[2022-06-23 08:45] LABS: BUN/Creatinine Ratio 6.7; Calcium 7.9 mg/dL (8.5-10.1); Magnesium 2.1 mg/dL (1.6-2.6); Phosphorus 2.8 mg/dL (2.5-4.90); Potassium 3.6 mmol/L (3.5-5.1)
[2022-06-23 08:57] VITALS: BP 148/79
[2022-06-23] MEDS: DOCUSATE SOD 100 MG CAP PO SCH (09:48)
[2022-06-23] MEDS: ENOXAPARIN SOD 30 MG/0.3 ML SYRINGE SC SCH (09:48)
[2022-06-23] MEDS: PANTOPRAZOLE 40 MG TAB PO SCH (09:48)
[2022-06-23] MEDS: FUROSEMIDE 20 MG/2 ML VIAL IV SCH (09:49)
[2022-06-23] MEDS: ISOSORBIDE MONONITRATE ER 60 MG TAB PO SCH (09:50)
[2022-06-23] MEDS: METOPROLOL TARTRATE 25 MG TAB PO SCH ×2 (09:50→22:30)
[2022-06-23] MEDS ORDERED: AZITHROMYCIN 250 MG TAB PO SCH (10:00)
[2022-06-23] MEDS: MORPHINE SULFATE INJ 2 MG/ml SYRG IV PRN (12:16)
[2022-06-23 13:00] VITALS: BP 144/89
[2022-06-23] MEDS ORDERED: IOHEXOL 350 MG/ML 100ML IJ ONE (14:10)
[2022-06-23 17:00] VITALS: BP 128/81
[2022-06-23 21:39] VITALS: BP 127/82
[2022-06-23] MEDS: ATORVASTATIN 20 MG TAB PO SCH (22:29)
[2022-06-23] MEDS: HYDROcodone-ACET 5/325MG TAB PO PRN (22:34)
[2022-06-24] MEDS ORDERED: ALBUTEROL MEDNEB 2.5 mg/3ml NEB ONE ×4 (00:17→18:01)
[2022-06-24] MEDS: ALBUTEROL SULF 2.5 MG/0.5ML(0.5%) NEB SOLN NEB SCH ×4 (01:18→18:59)
[2022-06-24] MEDS: IPRATROPIUM BROM 0.5 MG/2.5ML INH SOL NEB SCH ×4 (01:18→18:59)
[2022-06-24] MEDS: PIPERACILLIN-TAZOB 3.375GM 100 ML IV SCH ×4 (02:49→22:21)
[2022-06-24 04:54] VITALS: BP 139/87
[2022-06-24] MEDS: HYDROcodone-ACET 5/325MG TAB PO PRN ×2 (06:07→19:36)
[2022-06-24 06:55] LABS: Basophils # (auto) 0.1 10 ^3/uL (0-0.2); Basophils % (auto) 0.5 % (0.0-2.0); Eosinophils # (auto) 0.1 10 ^3/uL (0-0.8); Eosinophils % (auto) 0.8 % (0.0-7.0); Hematocrit 35.7 % (41.0-53.0); Hemoglobin 12.1 g/dL (13.5-17.5); Lymphocytes # (auto) 1.9 10 ^3/uL (0.4-5.4); Lymphocytes % (auto) 13.8 % (10.0-50.0); Mean Corpuscular Hemoglobin 29.8 pg (28.0-32.0); Mean Corpuscular Hgb Conc. 33.8 g/dL (32.0-36.0); Mean Corpuscular Volume 88.1 fL (80.0-100.0); Monocytes # (auto) 1.2 10 ^3/uL (0-1.3); Monocytes % (auto) 8.6 % (0.0-12.0); Neutrophils # (auto) 10.3 10 ^3/uL (1.6-8.6); Neutrophils % (auto) 76.3 % (37.0-80.0); Nucleated Red Blood Cells % 0.1 %; Red Blood Cells 4.05 10^6/uL (4.5-5.90); Red Cell Distribution Width 14.5 % (11.8-14.3); White Blood Cell 13.5 10^3/uL (4.4-10.8)
[2022-06-24 08:31] VITALS: BP 132/81
[2022-06-24] MEDS: DOCUSATE SOD 100 MG CAP PO SCH (09:39)
[2022-06-24] MEDS: ENOXAPARIN SOD 30 MG/0.3 ML SYRINGE SC SCH (09:40)
[2022-06-24] MEDS: ISOSORBIDE MONONITRATE ER 60 MG TAB PO SCH (09:41)
[2022-06-24] MEDS: PANTOPRAZOLE 40 MG TAB PO SCH (09:42)
[2022-06-24] MEDS: METOPROLOL TARTRATE 25 MG TAB PO SCH ×2 (09:42→22:20)
[2022-06-24] MEDS: FUROSEMIDE 20 MG/2 ML VIAL IV SCH (09:43)
[2022-06-24] MEDS ORDERED: CLINDAMYCIN 600MG IV 50 ML IV ONE (10:00)
[2022-06-24] MEDS: MORPHINE SULFATE INJ 2 MG/ml SYRG IV PRN (11:54)
[2022-06-24 13:00] VITALS: BP 141/81
[2022-06-24 16:47] VITALS: BP 122/77
[2022-06-24] MEDS: CLINDAMYCIN 600MG IV 50 ML IV SCH (19:35)
[2022-06-24 22:00] VITALS: BP 117/72
[2022-06-24] MEDS: ATORVASTATIN 20 MG TAB PO SCH (22:20)
[2022-06-25] VITALS (7 sets, daily range): BP systolic 130–148; BP diastolic 72–83
[2022-06-25] MEDS ORDERED: ALBUTEROL MEDNEB 2.5 mg/3ml NEB ONE ×5 (00:04→18:08)
[2022-06-25] MEDS: HYDROcodone-ACET 5/325MG TAB PO PRN ×4 (00:13→18:09)
[2022-06-25] MEDS: CLINDAMYCIN 600MG IV 50 ML IV SCH ×3 (02:26→18:09)
[2022-06-25] MEDS: PIPERACILLIN-TAZOB 3.375GM 100 ML IV SCH ×4 (03:35→21:12)
[2022-06-25] MEDS: ALBUTEROL SULF 2.5 MG/0.5ML(0.5%) NEB SOLN NEB SCH ×4 (07:15→19:10)
[2022-06-25] MEDS: IPRATROPIUM BROM 0.5 MG/2.5ML INH SOL NEB SCH ×4 (07:15→19:10)
[2022-06-25 07:18] LABS: Basophils # (auto) 0 10 ^3/uL (0-0.2); Basophils % (auto) 0.2 % (0.0-2.0); Eosinophils # (auto) 0.1 10 ^3/uL (0-0.8); Eosinophils % (auto) 0.8 % (0.0-7.0); Hematocrit 33.7 % (41.0-53.0); Hemoglobin 11.1 g/dL (13.5-17.5); Lymphocytes # (auto) 1.6 10 ^3/uL (0.4-5.4); Lymphocytes % (auto) 12.2 % (10.0-50.0); Mean Corpuscular Hemoglobin 29.5 pg (28.0-32.0); Mean Corpuscular Volume 89.3 fL (80.0-100.0); Monocytes % (auto) 7.8 % (0.0-12.0); Neutrophils # (auto) 10.5 10 ^3/uL (1.6-8.6); Red Blood Cells 3.77 10^6/uL (4.5-5.90); Red Cell Distribution Width 14.6 % (11.8-14.3); White Blood Cell 13.3 10^3/uL (4.4-10.8)
[2022-06-25 07:31] LABS: Anion Gap 9 (5-15); Blood Urea Nitrogen 11 mg/dL (7-18); Calcium 8.4 mg/dL (8.5-10.1); Carbon Dioxide 29 mmol/L (21-32); Chloride 96 mmol/L (98-107); Potassium 3.2 mmol/L (3.5-5.1); Sodium 134 mmol/L (136-145)
[2022-06-25 07:34] LABS: Alanine Aminotransferase 35 U/L (16-61); Aspartate Aminotransferase 28 U/L (15-37); BUN/Creatinine Ratio 10.3; GFR African American 88 mL/min; GFR Non-African American 73 mL/min; Glucose 116 mg/dL (74-106)
[2022-06-25 07:36] LABS: Alkaline Phosphatase 89 U/L (45-117); Total Protein 7.3 g/dL (6.4-8.2)
[2022-06-25] MEDS: ISOSORBIDE MONONITRATE ER 60 MG TAB PO SCH (09:28)
[2022-06-25] MEDS: METOPROLOL TARTRATE 25 MG TAB PO SCH ×2 (09:28→21:12)
[2022-06-25] MEDS: DOCUSATE SOD 100 MG CAP PO SCH (09:29)
[2022-06-25] MEDS: PANTOPRAZOLE 40 MG TAB PO SCH (09:29)
[2022-06-25] MEDS: ENOXAPARIN SOD 30 MG/0.3 ML SYRINGE SC SCH (09:36)
[2022-06-25] MEDS: ATORVASTATIN 20 MG TAB PO SCH (21:12)
[2022-06-25] MEDS: ZOLPIDEM TARTRATE 5 MG TAB PO PRN (21:23)
[2022-06-26] VITALS (7 sets, daily range): BP systolic 123–141; BP diastolic 75–79
[2022-06-26] MEDS: CLINDAMYCIN 600MG IV 50 ML IV SCH ×3 (01:38→18:06)
[2022-06-26] MEDS: HYDROcodone-ACET 5/325MG TAB PO PRN ×4 (01:41→22:09)
[2022-06-26] MEDS: PIPERACILLIN-TAZOB 3.375GM 100 ML IV SCH ×4 (03:36→20:51)
[2022-06-26] MEDS ORDERED: ALBUTEROL MEDNEB 2.5 mg/3ml NEB ONE ×4 (05:46→23:58)
[2022-06-26] MEDS: IPRATROPIUM BROM 0.5 MG/2.5ML INH SOL NEB SCH ×5 (06:09→23:59)
[2022-06-26] MEDS: ALBUTEROL SULF 2.5 MG/0.5ML(0.5%) NEB SOLN NEB SCH ×5 (06:09→23:59)
[2022-06-26] MEDS: DOCUSATE SOD 100 MG CAP PO SCH (08:31)
[2022-06-26] MEDS: ISOSORBIDE MONONITRATE ER 60 MG TAB PO SCH (08:31)
[2022-06-26] MEDS: PANTOPRAZOLE 40 MG TAB PO SCH (08:32)
[2022-06-26] MEDS: METOPROLOL TARTRATE 25 MG TAB PO SCH ×2 (08:33→21:53)
[2022-06-26] MEDS: ENOXAPARIN SOD 30 MG/0.3 ML SYRINGE SC SCH (08:33)
[2022-06-26] MEDS: MORPHINE SULFATE INJ 2 MG/ml SYRG IV PRN (08:34)
[2022-06-26] MEDS: ATORVASTATIN 20 MG TAB PO SCH (21:53)
[2022-06-27] MEDS: CLINDAMYCIN 600MG IV 50 ML IV SCH ×3 (02:03→18:34)
[2022-06-27] MEDS: HYDROcodone-ACET 5/325MG TAB PO PRN ×3 (02:14→20:24)
[2022-06-27] MEDS: PIPERACILLIN-TAZOB 3.375GM 100 ML IV SCH ×4 (03:11→22:04)
[2022-06-27 05:00] VITALS: BP 142/71
[2022-06-27] MEDS ORDERED: ALBUTEROL MEDNEB 2.5 mg/3ml NEB ONE ×4 (06:40→23:19)
[2022-06-27] MEDS: IPRATROPIUM BROM 0.5 MG/2.5ML INH SOL NEB SCH ×4 (07:19→23:28)
[2022-06-27] MEDS: ALBUTEROL SULF 2.5 MG/0.5ML(0.5%) NEB SOLN NEB SCH ×4 (07:20→23:28)
[2022-06-27 08:00] VITALS: BP 152/77
[2022-06-27] MEDS: DOCUSATE SOD 100 MG CAP PO SCH (08:50)
[2022-06-27] MEDS: PANTOPRAZOLE 40 MG TAB PO SCH (08:51)
[2022-06-27] MEDS: ISOSORBIDE MONONITRATE ER 60 MG TAB PO SCH (08:51)
[2022-06-27] MEDS: METOPROLOL TARTRATE 25 MG TAB PO SCH ×2 (08:52→22:03)
[2022-06-27] MEDS: ENOXAPARIN SOD 30 MG/0.3 ML SYRINGE SC SCH (08:52)
[2022-06-27 09:00] VITALS: BP 149/75
[2022-06-27 13:00] VITALS: BP 128/67
[2022-06-27 16:53] VITALS: BP_SYST 106; BP_SYST 154; BP_DIAS 67; BP_DIAS 77
[2022-06-27] MEDS: MORPHINE SULFATE INJ 2 MG/ml SYRG IV PRN ×2 (17:08→22:02)
[2022-06-27] MEDS: ATORVASTATIN 20 MG TAB PO SCH (21:58)
[2022-06-27 22:00] VITALS: BP 144/73
[2022-06-27] MEDS: ZOLPIDEM TARTRATE 5 MG TAB PO PRN (22:03)
[2022-06-28] VITALS (8 sets, daily range): BP systolic 105–153; BP diastolic 55–79
[2022-06-28] MEDS: CLINDAMYCIN 600MG IV 50 ML IV SCH ×2 (02:15→10:00)
[2022-06-28] MEDS: PIPERACILLIN-TAZOB 3.375GM 100 ML IV SCH ×4 (03:35→22:01)
[2022-06-28] MEDS: HYDROcodone-ACET 5/325MG TAB PO PRN ×2 (04:44→22:01)
[2022-06-28] MEDS ORDERED: ALBUTEROL MEDNEB 2.5 mg/3ml NEB ONE ×3 (05:58→17:57)
[2022-06-28] MEDS: IPRATROPIUM BROM 0.5 MG/2.5ML INH SOL NEB SCH ×3 (06:38→18:42)
[2022-06-28] MEDS: ALBUTEROL SULF 2.5 MG/0.5ML(0.5%) NEB SOLN NEB SCH ×3 (06:38→18:42)
[2022-06-28] MEDS: DOCUSATE SOD 100 MG CAP PO SCH (09:34)
[2022-06-28] MEDS: PANTOPRAZOLE 40 MG TAB PO SCH (09:34)
[2022-06-28] MEDS: ISOSORBIDE MONONITRATE ER 60 MG TAB PO SCH (09:36)
[2022-06-28] MEDS: METOPROLOL TARTRATE 25 MG TAB PO SCH ×2 (09:36→22:02)
[2022-06-28] MEDS: ENOXAPARIN SOD 30 MG/0.3 ML SYRINGE SC SCH (09:38)
[2022-06-28] MEDS ORDERED: LEVO500T31 PO (12:01)
[2022-06-28] MEDS ORDERED: HYDR-4902 PO (12:01)
[2022-06-28] MEDS: ZOLPIDEM TARTRATE 5 MG TAB PO PRN (22:01)
[2022-06-28] MEDS: ATORVASTATIN 20 MG TAB PO SCH (22:01)
[2022-06-28] MEDS: ONDANSETRON HCL 4 MG/2 ML VIAL IV PRN (22:01)
[2022-06-29] MEDS: IPRATROPIUM BROM 0.5 MG/2.5ML INH SOL NEB SCH ×4 (00:56→17:54)
[2022-06-29] MEDS: ALBUTEROL SULF 2.5 MG/0.5ML(0.5%) NEB SOLN NEB SCH ×4 (00:56→17:54)
[2022-06-29] MEDS: CLINDAMYCIN 600MG IV 50 ML IV SCH ×3 (02:00→17:37)
[2022-06-29] MEDS: PIPERACILLIN-TAZOB 3.375GM 100 ML IV SCH ×4 (03:00→21:11)
[2022-06-29 05:00] VITALS: BP 145/77
[2022-06-29] MEDS ORDERED: ALBUTEROL MEDNEB 2.5 mg/3ml NEB ONE ×2 (06:02)
[2022-06-29 07:30] VITALS: BP 145/77
[2022-06-29 09:00] VITALS: BP 127/81
[2022-06-29] MEDS: METOPROLOL TARTRATE 25 MG TAB PO SCH ×2 (10:00→22:17)
[2022-06-29] MEDS: DOCUSATE SOD 100 MG CAP PO SCH (10:56)
[2022-06-29] MEDS: PANTOPRAZOLE 40 MG TAB PO SCH (10:56)
[2022-06-29] MEDS: ISOSORBIDE MONONITRATE ER 60 MG TAB PO SCH (10:58)
[2022-06-29] MEDS: ENOXAPARIN SOD 30 MG/0.3 ML SYRINGE SC SCH (11:00)
[2022-06-29] MEDS: HYDROcodone-ACET 5/325MG TAB PO PRN (11:05)
[2022-06-29 13:00] VITALS: BP 142/78
[2022-06-29 17:00] VITALS: BP 124/73
[2022-06-29] MEDS: ATORVASTATIN 20 MG TAB PO SCH (22:16)
[2022-06-29] MEDS: ZOLPIDEM TARTRATE 5 MG TAB PO PRN (22:16)
[2022-06-29 22:39] VITALS: BP 140/83
[2022-06-30] MEDS: ALBUTEROL SULF 2.5 MG/0.5ML(0.5%) NEB SOLN NEB SCH ×2 (00:11→06:42)
[2022-06-30] MEDS: IPRATROPIUM BROM 0.5 MG/2.5ML INH SOL NEB SCH ×2 (00:11→06:42)
[2022-06-30] MEDS: CLINDAMYCIN 600MG IV 50 ML IV SCH ×2 (02:24→10:00)
[2022-06-30] MEDS: PIPERACILLIN-TAZOB 3.375GM 100 ML IV SCH ×2 (02:59→09:39)
[2022-06-30 04:45] VITALS: BP 116/77
[2022-06-30 05:35] VITALS: BP 116/77
[2022-06-30] MEDS ORDERED: ALBUTEROL MEDNEB 2.5 mg/3ml NEB ONE ×2 (05:58→10:07)
[2022-06-30 09:00] VITALS: BP 137/78
[2022-06-30] MEDS: METOPROLOL TARTRATE 25 MG TAB PO SCH (09:41)
[2022-06-30] MEDS: ISOSORBIDE MONONITRATE ER 60 MG TAB PO SCH (09:41)
[2022-06-30] MEDS: ENOXAPARIN SOD 30 MG/0.3 ML SYRINGE SC SCH (09:42)
[2022-06-30] MEDS: DOCUSATE SOD 100 MG CAP PO SCH (09:42)
[2022-06-30] MEDS: PANTOPRAZOLE 40 MG TAB PO SCH (09:42)
== END 2022-06-30 12:00 | disposition home or self-care (01) | DRG 417 ==
LOC: ER 00:15 → TELE 03:56 → TELE-WESTW 06-13 22:00 → WEST WING 06-14 19:28 → CENTRAL 06-28 18:41
PROVIDERS: ADMIT Hospitalist; ATTEND Internal Medicine
PROC: 0FT44ZZ Resection of Gallbladder, Percutaneous Endoscopic Approach (ICD-10-PCS; principal; 2022-06-19 09:07)
DX: K80.00 Calculus of gallbladder with acute cholecystitis without obstruction (principal); J18.9 Pneumonia, unspecified organism; J90 Pleural effusion, not elsewhere classified; I16.0 Hypertensive urgency; E78.5 Hyperlipidemia, unspecified; I10 Essential (primary) hypertension; R73.03 Prediabetes; E66.01 Morbid (severe) obesity due to excess calories; R79.89 Other specified abnormal findings of blood chemistry; M10.9 Gout, unspecified; Z20.822 Contact with and (suspected) exposure to COVID-19; D72.829 Elevated white blood cell count, unspecified; R00.0 Tachycardia, unspecified; Z79.02 Long term (current) use of antithrombotics/antiplatelets; Z86.73 Personal history of transient ischemic attack (TIA), and cerebral infarction without residual deficits; Z79.899 Other long term (current) drug therapy; Z87.891 Personal history of nicotine dependence; Z68.30 Body mass index [BMI] 30.0-30.9, adult
CPT/HCPCS: 36415; 36600; 71045; 71250; 71275; 74176; 74177; 76705; 78226; 80048; 80053; 81001; 82150; 82247; 82805; 83036; 83690; 83735; 83880; 84100; 84484; 85025; 85379; 85610; 85730; 86850; 86900; 86901; 87070; 87075; 87077; 87186; 87205; 87426; 87804; 93005; 93970; 94640; 94660; 96374; 96375; G0378; J0696; J1885; J2001; J2250; J2405; J2543; J2704; J3490; J7042

== ENCOUNTER → 2022-10-03 | Outpatient (CLI) | payer MEDICARE, MEDICAID ==
[~2022-10-03] MED LIST changes: +ALLO300T2 PO; +HYDR-4902 PO; +ISOS1TAB28 PO; +LEVO500T31 PO; +LOSA-39 PO; +TRAZ50TA2 PO
[2022-10-03 08:31] LABS: Hematocrit 39.3 % (41.0-53.0); Mean Corpuscular Hgb Conc. 33.2 g/dL (32.0-36.0); Mean Corpuscular Volume 87.3 fL (80.0-100.0); Red Blood Cells 4.51 10^6/uL (4.5-5.90); Red Cell Distribution Width 16.7 % (11.8-14.3); White Blood Cell 8.2 10^3/uL (4.4-10.8)
[2022-10-03 08:32] LABS: Band Neutrophils % (manual) 0; Basophils % (manual) 0 (0.0-2.0); Blast Cells 0; Metamyelocytes % 0; Myelocytes % 0; Promyelocytes % 0; Reactive Lymphocytes 0
[2022-10-03 08:33] LABS: Urine Bacteria NONE SEEN /hpf (None Seen); Urine Blood Negative /uL (Negative); Urine Mucus FEW (None Seen); Urine Specific Gravity 1.012 (1.001-1.035); Urine WBC 1 /hpf (0 - 3)
[2022-10-03 09:08] LABS: Albumin 3.5 g/dL (3.4-5.0); Calcium 9.6 mg/dL (8.5-10.1); Potassium 4.2 mmol/L (3.5-5.1)
[2022-10-03 09:14] LABS: BUN/Creatinine Ratio 9.9 (10.0-20.0); Bilirubin, Total 0.4 mg/dL (0.2-1.0); Total Protein 8.4 g/dL (6.4-8.2)
[2022-10-03 09:46] LABS: Eosinophils % (manual) 3 (0-7); Lymphocytes % (manual) 28 (10.0-50.0); Monocytes % (manual) 5 (0-12)
== END | disposition home or self-care (01) ==
LOC: LAB 08:07
PROVIDERS: ATTEND Internal Medicine
DX: R73.09 Other abnormal glucose (principal); Z79.899 Other long term (current) drug therapy
CPT/HCPCS: 36415; 80053; 80061; 81001; 82274; 83036; 84439; 84443; 85007; 85027

== ENCOUNTER → 2023-03-21 | Outpatient (CLI) | payer MEDICARE, MEDICAID ==
[~2023-03-21] MED LIST changes: +ASPI-736 PO; -ASPI1CHW15 PO; -LOSA-39 PO; +LOSA100T58 PO; +TRAZ-227 PO; -TRAZ50TA2 PO
[2023-03-21 12:40] LABS: Basophils # (auto) 0 10 ^3/uL (0-0.2); Basophils % (auto) 0.4 % (0.0-2.0); Eosinophils # (auto) 0.2 10 ^3/uL (0-0.8); Eosinophils % (auto) 3.1 % (0.0-7.0); Hematocrit 36.9 % (41.0-53.0); Hemoglobin 11.9 g/dL (13.5-17.5); Lymphocytes # (auto) 2.8 10 ^3/uL (0.4-5.4); Lymphocytes % (auto) 35.5 % (10.0-50.0); Mean Corpuscular Hemoglobin 27.5 pg (28.0-32.0); Mean Corpuscular Hgb Conc. 32.4 g/dL (32.0-36.0); Mean Corpuscular Volume 84.9 fL (80.0-100.0); Monocytes # (auto) 0.6 10 ^3/uL (0-1.3); Monocytes % (auto) 7.5 % (0.0-12.0); Neutrophils # (auto) 4.2 10 ^3/uL (1.6-8.6); Neutrophils % (auto) 53.5 % (37.0-80.0); Red Blood Cells 4.34 10^6/uL (4.5-5.90); Red Cell Distribution Width 17.3 % (11.8-14.3); White Blood Cell 7.8 10^3/uL (4.4-10.8)
[2023-03-21 12:59] LABS: Alanine Aminotransferase 12 U/L (7-40); Albumin 4.3 g/dL (3.2-4.8); Alkaline Phosphatase 77 U/L (46-116); Anion Gap 6 (5-15); Aspartate Aminotransferase 11 U/L (13-40); BUN/Creatinine Ratio 9.2 (10.0-20.0); Blood Urea Nitrogen 9 mg/dL (9-23); Calcium 9.4 mg/dL (8.5-10.1); Carbon Dioxide 28 mmol/L (20-30); Chloride 105 mmol/L (98-107); Cholesterol 127 mg/dL (< 200); Glucose 92 mg/dL (74-106); HDL Cholesterol 39 mg/dL (40-59); LDL Cholesterol 71 mg/dL (< 100); Potassium 4.1 mmol/L (3.5-5.1); Sodium 139 mmol/L (136-145); Triglycerides 105 mg/dL (< 150)
[2023-03-21 13:00] LABS: Bilirubin, Total 0.9 mg/dL (0.2-1.0); Total Protein 7.7 g/dL (5.7-8.2)
== END | disposition home or self-care (01) ==
LOC: LAB 12:28
PROVIDERS: ATTEND Psychiatry & Neurology Neurology
DX: I63.9 Cerebral infarction, unspecified (principal)
CPT/HCPCS: 36415; 80053; 80061; 85025

== ENCOUNTER 2023-06-02 20:05 | Inpatient (IN) | payer MEDICARE, MEDICAID ==
[~2023-06-02] VITALS: Ht 167.6 cm; Wt 79.5 kg
[2023-06-02 20:30] LABS: Basophils # (auto) 0 10 ^3/uL (0-0.2); Basophils % (auto) 0.2 % (0.0-2.0); Eosinophils # (auto) 0.2 10 ^3/uL (0-0.8); Eosinophils % (auto) 1.6 % (0.0-7.0); Hematocrit 37.2 % (41.0-53.0); Hemoglobin 12.1 g/dL (13.5-17.5); Lymphocytes # (auto) 2.9 10 ^3/uL (0.4-5.4); Lymphocytes % (auto) 28.2 % (10.0-50.0); Mean Corpuscular Hemoglobin 27.3 pg (28.0-32.0); Mean Corpuscular Hgb Conc. 32.5 g/dL (32.0-36.0); Mean Corpuscular Volume 84.1 fL (80.0-100.0); Monocytes # (auto) 0.8 10 ^3/uL (0-1.3); Neutrophils # (auto) 6.4 10 ^3/uL (1.6-8.6); Red Blood Cells 4.42 10^6/uL (4.5-5.90); White Blood Cell 10.3 10^3/uL (4.4-10.8)
[2023-06-02 20:45] LABS: INR 1.14 (0.9-1.15); Partial Thromboplastin Time 32.3 SEC (24.5-34.5); Prothrombin Time 11.9 sec (9.3-11.8)
[2023-06-02 20:55] LABS: Alanine Aminotransferase 22 U/L (7-40); Albumin 4.4 g/dL (3.2-4.8); Alkaline Phosphatase 90 U/L (46-116); Anion Gap 10 (5-15); Aspartate Aminotransferase 17 U/L (13-40); BUN/Creatinine Ratio 12.6 (10.0-20.0); Blood Urea Nitrogen 14 mg/dL (9-23); Calcium 8.9 mg/dL (8.7-10.4); Carbon Dioxide 23 mmol/L (20-30); Chloride 102 mmol/L (98-107); Glucose 110 mg/dL (74-106); Magnesium 1.9 mg/dL (1.6-2.6); Sodium 135 mmol/L (136-145)
[2023-06-02 20:56] LABS: Total Protein 7.4 g/dL (5.7-8.2)
[2023-06-03] MEDS ORDERED: OXYCODONE W/ ACETAMINOPHEN 5/325MG TABLET PO ONE (02:30)
[2023-06-03] MEDS ORDERED: ONDANSETRON ODT 4 MG TAB PO ONE (02:30)
[2023-06-03 03:00] VITALS: PULSE 72; RESP 16; O2SAT 96
[2023-06-03 11:10] VITALS: PULSE 67; RESP 14; O2SAT 98
[2023-06-03] MEDS ORDERED: LORazepam 0.5 MG TAB PO PRN (11:45)
[2023-06-03] MEDS ORDERED: ACETAMINOPHEN 325 MG TAB PO PRN (11:45)
[2023-06-03] MEDS ORDERED: PIPERACILLIN-TAZOB 3.375GM 100 ML IV ONE (11:45)
[2023-06-03] MEDS ORDERED: ONDANSETRON HCL 4 MG/2 ML VIAL IV PRN (11:45)
[2023-06-03] MEDS: SODIUM CHLORIDE 0.9% 1,000 ML IV SCH (12:15)
[2023-06-03] MEDS: MORPHINE SULFATE INJ 2 MG/ml SYRG IV PRN (12:16)
[2023-06-03 16:53] VITALS: BP 122/58; PULSE 63; RESP 19; O2SAT 97
[2023-06-03] MEDS: PIPERACILLIN-TAZOB 3.375GM 100 ML IV SCH ×2 (18:51→23:35)
[2023-06-03 22:00] VITALS: BP 108/63; PULSE 65; RESP 18; TEMP 98.1; O2SAT 96
[2023-06-04] VITALS (7 sets, daily range): BP systolic 112–145; BP diastolic 63–73; PULSE 55–89; RESP 16–18; TEMP 97.8–98.2; O2SAT 97–98
[2023-06-04 05:09] LABS: Urine Bacteria NONE SEEN /hpf (None Seen); Urine Blood Negative /uL (Negative); Urine Clarity Clear (Clear); Urine Color Yellow (Yellow); Urine Protein, UAD TRACE (Negative); Urine Specific Gravity 1.033 (1.001-1.035); Urine Urobilinogen Normal (Negative); Urine WBC <1 /hpf (0 - 3)
[2023-06-04] MEDS: PIPERACILLIN-TAZOB 3.375GM 100 ML IV SCH ×4 (06:43→21:47)
[2023-06-04] MEDS: MORPHINE SULFATE INJ 2 MG/ml SYRG IV PRN ×2 (06:58→15:47)
[2023-06-04] MEDS: SODIUM CHLORIDE 0.9% 1,000 ML IV SCH ×2 (07:00→21:05)
[2023-06-04] MEDS ORDERED: LIDOCAINE 2%HCL (LOCAL ANESTH.) INJ 10ml MDV ONE (09:21)
[2023-06-04] MEDS ORDERED: NALOXONE HCL 1MG/ML 2ML SYRINGE ONE (09:25)
[2023-06-04] MEDS ORDERED: MIDAZOLAM HCL 2MG/2ML 2ml VIAL (1mg/ml) IV ONE (09:30)
[2023-06-04] MEDS ORDERED: fentaNYL CITRATE 100 MCG/2 ML VL IV ONE (09:30)
[2023-06-05] MEDS: PIPERACILLIN-TAZOB 3.375GM 100 ML IV SCH ×4 (06:00→21:50)
[2023-06-05 06:58] LABS: Anion Gap 9 (5-15); Carbon Dioxide 24 mmol/L (20-30); Chloride 103 mmol/L (98-107); Potassium 4.1 mmol/L (3.5-5.1); Sodium 136 mmol/L (136-145)
[2023-06-05 06:59] LABS: Calcium 9.4 mg/dL (8.5-10.1)
[2023-06-05 07:00] LABS: Basophils # (auto) 0 10 ^3/uL (0-0.2); Basophils % (auto) 0.5 % (0.0-2.0); Eosinophils # (auto) 0.2 10 ^3/uL (0-0.8); Eosinophils % (auto) 3.2 % (0.0-7.0); Hematocrit 36.1 % (41.0-53.0); Lymphocytes # (auto) 1.6 10 ^3/uL (0.4-5.4); Lymphocytes % (auto) 26.4 % (10.0-50.0); Mean Corpuscular Hemoglobin 27.9 pg (28.0-32.0); Mean Corpuscular Hgb Conc. 33.4 g/dL (32.0-36.0); Mean Corpuscular Volume 83.7 fL (80.0-100.0); Monocytes # (auto) 0.5 10 ^3/uL (0-1.3); Monocytes % (auto) 7.7 % (0.0-12.0); Neutrophils # (auto) 3.9 10 ^3/uL (1.6-8.6); Neutrophils % (auto) 62.2 % (37.0-80.0); Nucleated Red Blood Cells % 0.1 %; Red Blood Cells 4.31 10^6/uL (4.5-5.90); Red Cell Distribution Width 16.5 % (11.8-14.3); White Blood Cell 6.2 10^3/uL (4.4-10.8)
[2023-06-05 07:04] LABS: BUN/Creatinine Ratio 13.9 (10.0-20.0); Blood Urea Nitrogen 14 mg/dL (9-23); Glucose 77 mg/dL (74-106)
[2023-06-05 08:00] VITALS: BP 126/69; PULSE 77; RESP 17; TEMP 98.2; O2SAT 93
[2023-06-05 12:35] VITALS: BP 135/72; PULSE 65; RESP 20; TEMP 97.5; O2SAT 99
[2023-06-05] MEDS: SODIUM CHLORIDE 0.9% 1,000 ML IV SCH (13:45)
[2023-06-05 16:53] VITALS: BP 134/68; PULSE 63; RESP 18; TEMP 97.6; O2SAT 98
[2023-06-05] MEDS ORDERED: AUG875T PO (18:06)
[2023-06-05 22:00] VITALS: BP 136/65; PULSE 56; RESP 18; TEMP 98.2; O2SAT 96
[2023-06-06] MEDS: MORPHINE SULFATE INJ 2 MG/ml SYRG IV PRN (04:52)
[2023-06-06 05:00] VITALS: BP 117/75; PULSE 52; RESP 18; TEMP 97.8; O2SAT 99
[2023-06-06] MEDS: PIPERACILLIN-TAZOB 3.375GM 100 ML IV SCH ×2 (05:49→11:58)
[2023-06-06] MEDS: SODIUM CHLORIDE 0.9% 1,000 ML IV SCH (06:25)
[2023-06-06 09:00] VITALS: BP 135/57; PULSE 52; RESP 18; TEMP 97.8; O2SAT 97
[2023-06-06 13:00] VITALS: BP 140/68; PULSE 61; RESP 16; TEMP 98; O2SAT 97
[2023-06-06 16:36] VITALS: BP 147/106; PULSE 58; RESP 19; TEMP 97.4; O2SAT 95
== END 2023-06-06 16:15 | disposition home or self-care (01) | DRG 603 ==
LOC: ER 20:06 → OVERFLOW 06-03 11:43 → CENTRAL 06-03 16:53
PROVIDERS: ADMIT Internal Medicine; ATTEND Internal Medicine
PROC: 0W9F30Z Drainage of Abdominal Wall with Drainage Device, Percutaneous Approach (ICD-10-PCS; principal; 2023-06-04)
DX: L02.211 Cutaneous abscess of abdominal wall (principal); I11.9 Hypertensive heart disease without heart failure; R73.03 Prediabetes; F41.9 Anxiety disorder, unspecified; M10.9 Gout, unspecified; Z86.73 Personal history of transient ischemic attack (TIA), and cerebral infarction without residual deficits; Z90.49 Acquired absence of other specified parts of digestive tract
CPT/HCPCS: 10005; 36415; 71045; 71250; 74150; 74176; 77012; 80048; 80053; 81001; 83036; 83735; 83880; 84443; 84484; 85025; 85610; 85730; 87077; 87086; 87186; 87205; G0378; J2001; J2250; J2405; J2543; Q0162

== ENCOUNTER → 2023-08-05 | Outpatient (CLI) | payer MEDICARE, MEDICAID ==
[~2023-08-05] MED LIST changes: -ASPI-736 PO; +AUG875T PO; -CLOP75TA70 PO; -HYDR-4902 PO; -LEVO500T31 PO; -TELM80TA PO
[2023-08-05 09:07] LABS: Basophils # (auto) 0 10 ^3/uL (0-0.2); Basophils % (auto) 0.7 % (0.0-2.0); Eosinophils # (auto) 0.2 10 ^3/uL (0-0.8); Eosinophils % (auto) 3.7 % (0.0-7.0); Hematocrit 40.4 % (41.0-53.0); Lymphocytes # (auto) 2.6 10 ^3/uL (0.4-5.4); Lymphocytes % (auto) 44.3 % (10.0-50.0); Mean Corpuscular Hemoglobin 28.3 pg (28.0-32.0); Mean Corpuscular Hgb Conc. 32.1 g/dL (32.0-36.0); Mean Corpuscular Volume 88.2 fL (80.0-100.0); Monocytes # (auto) 0.5 10 ^3/uL (0-1.3); Monocytes % (auto) 7.8 % (0.0-12.0); Neutrophils # (auto) 2.6 10 ^3/uL (1.6-8.6); Neutrophils % (auto) 43.5 % (37.0-80.0); Red Blood Cells 4.58 10^6/uL (4.5-5.90); Red Cell Distribution Width 19.6 % (11.8-14.3); White Blood Cell 5.9 10^3/uL (4.4-10.8)
[2023-08-05 09:48] LABS: Alanine Aminotransferase 12 U/L (7-40); Albumin 4.5 g/dL (3.2-4.8); Alkaline Phosphatase 79 U/L (46-116); Anion Gap 5 (5-15); Aspartate Aminotransferase 17 U/L (13-40); BUN/Creatinine Ratio 11.5 (10.0-20.0); Blood Urea Nitrogen 12 mg/dL (9-23); Calcium 9.6 mg/dL (8.5-10.1); Carbon Dioxide 27 mmol/L (20-30); Chloride 110 mmol/L (98-107); Glucose 101 mg/dL (74-106); Potassium 4.5 mmol/L (3.5-5.1); Sodium 142 mmol/L (136-145)
[2023-08-05 09:49] LABS: Bilirubin, Total 0.7 mg/dL (0.2-1.0); Total Protein 7.7 g/dL (5.7-8.2)
[2023-08-05 10:31] LABS: Uric Acid 3.8 mg/dL (3.7-9.2)
== END | disposition home or self-care (01) ==
LOC: LAB 08:38
PROVIDERS: ATTEND Internal Medicine
DX: R73.03 Prediabetes (principal); E78.5 Hyperlipidemia, unspecified; Z79.899 Other long term (current) drug therapy
CPT/HCPCS: 36415; 80053; 82306; 84550; 85025

== ENCOUNTER 2023-12-04 08:43 | Inpatient (IN) | payer MEDICARE, MEDICAID ==
[2023-12-02 06:20] LABS: Urine Bacteria None Seen /hpf (None Seen)
[2023-12-02 07:21] LABS: Basophils # (auto) 0 10 ^3/uL (0-0.2); Basophils % (auto) 0.5 % (0.0-2.0); Eosinophils # (auto) 0.2 10 ^3/uL (0-0.8); Eosinophils % (auto) 2.6 % (0.0-7.0); Hematocrit 43.6 % (41.0-53.0); Hemoglobin 14.6 g/dL (13.5-17.5); Lymphocytes # (auto) 3.5 10 ^3/uL (0.4-5.4); Lymphocytes % (auto) 46.4 % (10.0-50.0); Mean Corpuscular Hemoglobin 29.7 pg (28.0-32.0); Mean Corpuscular Hgb Conc. 33.5 g/dL (32.0-36.0); Mean Corpuscular Volume 88.7 fL (80.0-100.0); Monocytes # (auto) 0.4 10 ^3/uL (0-1.3); Neutrophils # (auto) 3.3 10 ^3/uL (1.6-8.6); Neutrophils % (auto) 44.5 % (37.0-80.0); Red Blood Cells 4.91 10^6/uL (4.5-5.90); Red Cell Distribution Width 15.9 % (11.8-14.3); White Blood Cell 7.4 10^3/uL (4.4-10.8)
[2023-12-02 07:32] LABS: Urine Blood Negative /uL (Negative); Urine Clarity Clear (Clear); Urine Color Light-Yellow (Yellow); Urine Mucus FEW (None Seen); Urine Protein, UAD Negative (Negative); Urine Specific Gravity 1.021 (1.001-1.035); Urine Urobilinogen Normal (Negative); Urine WBC 1 /hpf (0 - 3)
[2023-12-02 07:40] LABS: INR 1.06 (0.9-1.15); Partial Thromboplastin Time 29.1 SEC (24.5-34.5); Prothrombin Time 11.2 sec (9.3-11.8)
[2023-12-02 07:48] LABS: Alanine Aminotransferase 20 U/L (7-40); Alkaline Phosphatase 90 U/L (46-116); Anion Gap 7 (5-15); BUN/Creatinine Ratio 9.3 (10.0-20.0); Blood Urea Nitrogen 11 mg/dL (9-23); Carbon Dioxide 25 mmol/L (20-30); Chloride 108 mmol/L (98-107); Glucose 101 mg/dL (74-106); Potassium 4.2 mmol/L (3.5-5.1); Sodium 140 mmol/L (136-145)
[2023-12-02 07:50] LABS: Albumin 4.7 g/dL (3.2-4.8); Aspartate Aminotransferase 13 U/L (13-40); Bilirubin, Total 0.6 mg/dL (0.2-1.0); Total Protein 7.8 g/dL (5.7-8.2)
[~2023-12-04] VITALS: Ht 167.6 cm; Wt 82.6 kg
[~2023-12-04 08:43] MED LIST changes: +ASPI81CH59 PO; +ATOR80TA PO; -AUG875T PO; +LOSA-535 PO; -LOSA100T58 PO; +PANT40TA2 PO; +SUCR1TAB31 OR
[2023-12-04] MEDS ORDERED: MIDAZOLAM HCL 2MG/2ML 2ml VIAL (1mg/ml) ONE (10:12)
[2023-12-04] MEDS ORDERED: MEPERIDINE HCL (50 MG/ML) 1 ML VIAL ONE (10:12)
[2023-12-04] MEDS ORDERED: fentaNYL CITRATE 100 MCG/2 ML VL ONE (10:12)
[2023-12-04] MEDS ORDERED: DexAMETHasone SOD PHOS 10MG/1ML VIAL INJ ONE (10:14)
[2023-12-04] MEDS: LIDOCAINE W/ EPINEPHRINE 1% 20ML VIAL ONE (10:20)
[2023-12-04] MEDS: ceFAZolin 2 GM/D5W50ml 50 ML IV ONE (10:20)
[2023-12-04] MEDS: BUPIVACAINE 0.25% INJ 50ML VIAL ONE (10:20)
[2023-12-04] MEDS ORDERED: PROPOFOL 10 MG/ML 20 ML IV ONE (10:55)
[2023-12-04] MEDS ORDERED: ONDANSETRON HCL 4 MG/2 ML VIAL ONE (10:55)
[2023-12-04 11:21] VITALS: PULSE 96; RESP 13; O2SAT 100
[2023-12-04] MEDS: D5W/SOD CHL 0.45%/KCL 20MEQ 1,000 ML IV SCH (11:30)
[2023-12-04] MEDS ORDERED: HYDROmorphone HCL 2 MG/ML VL/or syr IV PRN (11:30)
[2023-12-04] MEDS: ACCU-CHEK COMFORT CURVE STRIP VI ONE (11:45)
[2023-12-04] MEDS ORDERED: MIDAZOLAM HCL 2MG/2ML 2ml VIAL (1mg/ml) IV PRN (11:45)
[2023-12-04] MEDS ORDERED: ePHEDrine SULFATE 50 MG/ML AMP IV PRN (11:45)
[2023-12-04] MEDS ORDERED: LABETALOL HCL 5 MG/ML 4ML SYRINGE IV PRN (11:45)
[2023-12-04] MEDS: ONDANSETRON HCL 4 MG/2 ML VIAL IV ONE (11:45)
[2023-12-04] MEDS ORDERED: MORPHINE SULFATE 4 MG/ML SYR/VIAL IV PRN (11:45)
[2023-12-04] MEDS: HYDROmorphone HCL 2 MG/ML VL/or syr IV PRN (12:07)
[2023-12-04] MEDS ORDERED: ONDANSETRON HCL 4 MG/2 ML VIAL IV PRN (13:15)
[2023-12-04] MEDS ORDERED: hydrALAZINE HCL 20 MG/ML VL IV PRN (13:15)
[2023-12-04] MEDS ORDERED: ACETAMINOPHEN 500 MG TAB PO PRN (13:15)
[2023-12-04 15:30] VITALS: BP 140/66; PULSE 69; RESP 18; TEMP 97.4; O2SAT 95
[2023-12-04 17:00] VITALS: BP 149/76; PULSE 71; RESP 18; TEMP 97.2; O2SAT 96
[2023-12-04] MEDS: ceFAZolin 1GM/50ML 50 ML IV SCH (17:18)
[2023-12-04 18:04] VITALS: BP 142/74; PULSE 76; PULSE 78; RESP 18; TEMP 97.9; O2SAT 98
[2023-12-04 21:00] VITALS: BP 142/76; PULSE 96; RESP 18; TEMP 98.1; O2SAT 93
[2023-12-04] MEDS: traZODone HCL 50 MG TAB PO SCH (22:12)
[2023-12-05 01:00] VITALS: BP 120/59; PULSE 63; RESP 18; TEMP 98; O2SAT 98
[2023-12-05 05:00] VITALS: BP 135/65; PULSE 61; RESP 18; TEMP 97.6; O2SAT 96
[2023-12-05 05:56] LABS: Basophils # (auto) 0 10 ^3/uL (0-0.2); Basophils % (auto) 0.3 % (0.0-2.0); Eosinophils # (auto) 0 10 ^3/uL (0-0.8); Hematocrit 39.4 % (41.0-53.0); Hemoglobin 12.9 g/dL (13.5-17.5); Lymphocytes # (auto) 1.8 10 ^3/uL (0.4-5.4); Lymphocytes % (auto) 14.5 % (10.0-50.0); Mean Corpuscular Hemoglobin 28.8 pg (28.0-32.0); Mean Corpuscular Hgb Conc. 32.8 g/dL (32.0-36.0); Mean Corpuscular Volume 87.8 fL (80.0-100.0); Monocytes # (auto) 0.6 10 ^3/uL (0-1.3); Monocytes % (auto) 5.2 % (0.0-12.0); Neutrophils # (auto) 9.8 10 ^3/uL (1.6-8.6); Red Blood Cells 4.49 10^6/uL (4.5-5.90); Red Cell Distribution Width 15.6 % (11.8-14.3); White Blood Cell 12.3 10^3/uL (4.4-10.8)
[2023-12-05 06:18] LABS: Alanine Aminotransferase 14 U/L (7-40); Albumin 4.2 g/dL (3.2-4.8); Alkaline Phosphatase 71 U/L (46-116); Anion Gap 7 (5-15); Aspartate Aminotransferase 13 U/L (13-40); BUN/Creatinine Ratio 14.9 (10.0-20.0); Blood Urea Nitrogen 15 mg/dL (9-23); Calcium 9.7 mg/dL (8.7-10.4); Carbon Dioxide 23 mmol/L (20-30); Chloride 106 mmol/L (98-107); Glucose 133 mg/dL (74-106); Potassium 4.7 mmol/L (3.5-5.1); Sodium 136 mmol/L (136-145)
[2023-12-05 06:19] LABS: Bilirubin, Total 0.7 mg/dL (0.2-1.0); Total Protein 7.1 g/dL (5.7-8.2)
[2023-12-05 09:00] VITALS: BP 139/68; PULSE 56; RESP 16; TEMP 97.6; O2SAT 99
[2023-12-05] MEDS ORDERED: cefTRIAXone 1GM/50ML D5W 50 ML IV SCH (09:00)
[2023-12-05] MEDS: LOSARTAN POTASSIUM 50 MG TAB PO SCH (09:47)
[2023-12-05] MEDS: ALLOPURINOL 100 MG TAB PO SCH (09:48)
[2023-12-05 13:00] VITALS: BP 147/70; PULSE 56; RESP 18; TEMP 98; O2SAT 98
[2023-12-05 17:00] VITALS: BP 158/78; PULSE 69; RESP 18; TEMP 97.7; O2SAT 97
[2023-12-05] MEDS: HYDROcodone-ACET 5/325MG TAB PO PRN (20:58)
[2023-12-05 21:00] VITALS: BP 133/58; PULSE 49; RESP 18; TEMP 97.8; O2SAT 97
[2023-12-06 00:59] VITALS: BP 115/70; PULSE 69; RESP 20; TEMP 97.5; O2SAT 97
[2023-12-06 04:47] VITALS: BP 124/70; PULSE 45; RESP 18; TEMP 97.7; O2SAT 98
[2023-12-06 06:16] LABS: Basophils # (auto) 0.1 10 ^3/uL (0-0.2); Basophils % (auto) 0.8 % (0.0-2.0); Eosinophils # (auto) 0.2 10 ^3/uL (0-0.8); Eosinophils % (auto) 1.8 % (0.0-7.0); Hematocrit 40.4 % (41.0-53.0); Hemoglobin 13.4 g/dL (13.5-17.5); Lymphocytes # (auto) 3.8 10 ^3/uL (0.4-5.4); Mean Corpuscular Hemoglobin 29.4 pg (28.0-32.0); Mean Corpuscular Hgb Conc. 33.3 g/dL (32.0-36.0); Mean Corpuscular Volume 88.5 fL (80.0-100.0); Monocytes # (auto) 0.8 10 ^3/uL (0-1.3); Neutrophils # (auto) 4.7 10 ^3/uL (1.6-8.6); Neutrophils % (auto) 49.4 % (37.0-80.0); Nucleated Red Blood Cells % 0.1 %; Red Blood Cells 4.56 10^6/uL (4.5-5.90); Red Cell Distribution Width 15.7 % (11.8-14.3); White Blood Cell 9.5 10^3/uL (4.4-10.8)
[2023-12-06 06:35] LABS: Alanine Aminotransferase 12 U/L (7-40); Alkaline Phosphatase 73 U/L (46-116); Calcium 9.3 mg/dL (8.5-10.1)
[2023-12-06 06:36] LABS: Albumin 4.1 g/dL (3.2-4.8); Anion Gap 6 (5-15); Aspartate Aminotransferase 13 U/L (13-40); BUN/Creatinine Ratio 14.4 (10.0-20.0); Bilirubin, Total 0.5 mg/dL (0.2-1.0); Blood Urea Nitrogen 15 mg/dL (9-23); Carbon Dioxide 26 mmol/L (20-30); Chloride 105 mmol/L (98-107); Glucose 96 mg/dL (74-106); Potassium 4.4 mmol/L (3.5-5.1); Sodium 137 mmol/L (136-145); Total Protein 6.7 g/dL (5.7-8.2)
[2023-12-06 09:00] VITALS: BP 120/70; PULSE 57; RESP 18; TEMP 97.3; O2SAT 95
[2023-12-06 13:00] VITALS: BP 111/54; PULSE 50; RESP 18; TEMP 97.5; O2SAT 97
[2023-12-06 14:55] VITALS: BP 124/74; RESP 16; TEMP 36.3
== END 2023-12-06 15:45 | disposition home health service (06) | DRG 581 ==
LOC: SUR 08:43 → OVERFLOW 13:05 → EAST 15:30
PROVIDERS: ADMIT Internal Medicine; ATTEND Internal Medicine
PROC: 0KBK0ZZ Excision of Right Abdomen Muscle, Open Approach (ICD-10-PCS; principal; 2023-12-04 10:20)
DX: L02.211 Cutaneous abscess of abdominal wall (principal); I10 Essential (primary) hypertension; E78.5 Hyperlipidemia, unspecified; M10.9 Gout, unspecified; Z86.73 Personal history of transient ischemic attack (TIA), and cerebral infarction without residual deficits; Z79.899 Other long term (current) drug therapy
CPT/HCPCS: 36415; 80053; 81001; 85025; 85610; 85730; G0378; J1100; J2250; J2405; J2704; J3490

== ENCOUNTER → 2024-06-24 | Outpatient (CLI) | payer MEDICARE, MEDICAID ==
[2024-06-24 09:02] LABS: Basophils # (auto) 0 10 ^3/uL (0-0.2); Basophils % (auto) 0.4 % (0.0-2.0); Eosinophils # (auto) 0.2 10 ^3/uL (0-0.8); Eosinophils % (auto) 2.4 % (0.0-7.0); Hemoglobin 14.5 g/dL (13.5-17.5); Lymphocytes # (auto) 3.1 10 ^3/uL (0.4-5.4); Lymphocytes % (auto) 49.6 % (10.0-50.0); Mean Corpuscular Hemoglobin 30.1 pg (28.0-32.0); Mean Corpuscular Hgb Conc. 33.7 g/dL (32.0-36.0); Mean Corpuscular Volume 89.3 fL (80.0-100.0); Monocytes # (auto) 0.3 10 ^3/uL (0-1.3); Monocytes % (auto) 5.2 % (0.0-12.0); Neutrophils # (auto) 2.7 10 ^3/uL (1.6-8.6); Neutrophils % (auto) 42.4 % (37.0-80.0); Nucleated Red Blood Cells % 0.1 %; Platelet Count (auto) 147 10^3/uL (140-450); Red Blood Cells 4.81 10^6/uL (4.5-5.90); Red Cell Distribution Width 15.3 % (11.8-14.3); White Blood Cell 6.3 10^3/uL (4.4-10.8)
[2024-06-24 09:04] LABS: Alanine Aminotransferase 26 U/L (7-40); Albumin 4.8 g/dL (3.2-4.8); Alkaline Phosphatase 78 U/L (46-116); Anion Gap 5 (5-15); Aspartate Aminotransferase 24 U/L (13-40); BUN/Creatinine Ratio 12.3 (10.0-20.0); Blood Urea Nitrogen 14 mg/dL (9-23); Calcium 10.1 mg/dL (8.7-10.4); Carbon Dioxide 28 mmol/L (20-31); Glucose 104 mg/dL (74-106); LDL Cholesterol 72 mg/dL (< 100); Potassium 4.3 mmol/L (3.5-5.1); Sodium 141 mmol/L (136-145)
[2024-06-24 09:05] LABS: Bilirubin, Total 0.9 mg/dL (0.2-1.0); Cholesterol 130 mg/dL (< 200); Total Protein 7.7 g/dL (5.7-8.2)
[2024-06-24 09:30] LABS: Chloride 108 mmol/L (98-107); HDL Cholesterol 40 mg/dL (40-59); Triglycerides 156 mg/dL (< 150)
== END | disposition home or self-care (01) ==
LOC: LAB 08:24
PROVIDERS: ATTEND Internal Medicine
DX: I10 Essential (primary) hypertension (principal); R73.03 Prediabetes; E66.09 Other obesity due to excess calories; Z79.899 Other long term (current) drug therapy
CPT/HCPCS: 36415; 80053; 80061; 82306; 83036; 84439; 84443; 85025